=== PATIENT | female | born 1975 | race Caucasian/White ===

== ENCOUNTER 2019-12-11 07:11 | Inpatient (IN) | payer OTHER ==
[~2019-12-11] VITALS: Ht 160 cm; Wt 100.5 kg
[2019-12-11] MEDS ORDERED: ONDANSETRON HCL INJ 2MG/ML 2ML 2 MG/ML VIAL IM STA (07:17)
[2019-12-11] MEDS ORDERED: SODIUM CHLORIDE 0.9% 1000ML 1,000 ML IV STA (07:20)
[2019-12-11] MEDS ORDERED: LORAZEPAM INJ 2 MG/ML VIAL IM ONE (07:30)
[2019-12-11] MEDS ORDERED: LORAZEPAM INJ 2 MG/ML VIAL ONE ×2 (07:30→07:41)
[2019-12-11] MEDS ORDERED: ONDANSETRON HCL INJ 2MG/ML 2ML 2 MG/ML VIAL ONE (07:31)
[2019-12-11] MEDS ORDERED: ONDANSETRON HCL INJ 2MG/ML 2ML 2 MG/ML VIAL IV STA (07:41)
[2019-12-11] MEDS ORDERED: LORAZEPAM INJ 2 MG/ML VIAL IV ONE ×3 (07:45→10:15)
[2019-12-11] MEDS ORDERED: ZIPRASIDONE 20 MG VIAL IM ONE (08:40)
[2019-12-11] MEDS ORDERED: ZIPRASIDONE 20 MG VIAL IM STA (08:42)
--- NOTE | 2019-12-11 08:42 | Diagnostic Imaging Report ---
Examination: CT head without contrast Clinical Indication: N ^ams ^[id number] ^[id number]; Altered mental status.. Technique: Transaxial noncontrast images from the skull base through the vertex were obtained. Sagittal and coronal reformatted images were done. Dose modulation, iterative reconstruction, and/or weight based adjustment of the mA/kV was utilized to reduce the radiation dose to as low as reasonably achievable. Comparison: None. Findings: There is significant motion artifact on the scan. Scalp: No abnormalities. Bones: Intact. No fractures. No blastic or lytic lesions. Brain sulci: Appropriate for patient's age. Ventricles: Normal in size and configuration. No hydrocephalus. Extra-axial space: No large hemorrhage. Left frontal 1.7 x 3.7 x 2.6cm arachnoid cyst. Parenchyma: Chronic left internal capsule (posterior limb) lacunar infarct. No large masses, large hemorrhage, or large acute or chronic cortical based vascular insults. Suprasellar region: No abnormalities. Craniocervical junction: The foramen magnum is patent. No Chiari one malformation. Impression: Despite limitation, no large intraparenchymal or extra-axial hemorrhage or large acute territorial infarct. Chronic left internal capsule lacunar infarct. Left frontal 1.7 x 3.7 x 2.6cm arachnoid cyst. Signed by: Dr. Lou Phillips M.D. on 12/11/2019 8:39 AM
[2019-12-11 09:37] LABS: INR 1.03
[2019-12-11 09:38] LABS: PARTIAL THROMBOPLASTIN TIME 26.6 seconds (23.8-35.5)
[2019-12-11 09:39] LABS: CLARITY,URINE CLEAR (CLEAR); COLOR,URINE AMBER (YELLOW)
[2019-12-11 09:40] LABS: BILIRUBIN,URINE SMALL (NEGATIVE); KETONES,URINE TRACE (NEGATIVE); LEUKOCYTE ESTERASE ,URINE NEGATIVE (NEGATIVE); NITRITE,URINE NEGATIVE (NEGATIVE); PROTEIN,URINE DIPSTICK 1+ (NEGATIVE); URINE UROBILINOGEN 0.2 mg/dL (0.2 - 1)
[2019-12-11 09:41] LABS: AMPHETAMINES SCREEN,URINE NEGATIVE (NEGATIVE); BENZODIAZEPINES SCREEN,URINE NEGATIVE (NEGATIVE); PHENCYCLIDINE SCREEN,URINE NEGATIVE (NEGATIVE)
[2019-12-11 09:52] LABS: BACTERIA,URINE MANY /HPF; EPITHELIAL CELLS,URINE MODERATE /LPF; MUCUS,URINE MANY (RARE); RBC,URINE 0-5 /HPF (0-5); WBC,URINE (MAN) 0-5 /HPF (0-5)
[2019-12-11 10:03] LABS: SALICYLATE < 5.0 mg/dL (0-30)
[2019-12-11] MEDS ORDERED: HYDROMORPHONE 1MG/1ML INJ IV STA (10:14)
[2019-12-11] MEDS ORDERED: DIPHENHYDRAMINE HCL INJ 50 MG/ML VIAL IV ONE (10:15)
[2019-12-11 10:18] LABS: ALANINE AMINOTRANSFERASE 23 IU/L (0-55); ALBUMIN 3.6 g/dL (3.5-5.0); ALBUMIN/GLOBULIN RATIO 0.7 (0.8-2.0); ALKALINE PHOSPHATASE 60 IU/L (40-150); BLOOD UREA NITROGEN 9 mg/dL (7-26); BUN/CREATININE RATIO 9 (6-25); CARBON DIOXIDE 25 mmol/L (22-29); CHLORIDE 103 mmol/L (98-107); CREATINE KINASE 62 IU/L (29-168); EST GLOMERULAR FILTRATION RATE > 60 ML/MIN (60-); GLUCOSE 95 mg/dL (74-118); SODIUM 138 mmol/L (136-145)
--- NOTE | 2019-12-11 10:23 | NUR ---
requested 1:1 sitter from greenhouse manager
[2019-12-11 10:39] LABS: THYROID STIMULATING HORMONE 3.406 uIU/mL (0.350-4.940)
--- NOTE | 2019-12-11 11:04 | NUR ---
LAB NOTIFIED, THEY WILL COME BACK TO REDRAW CBC
--- NOTE | 2019-12-11 11:25 | NUR ---
LIBRARY HELPER AT BEDSIDE OBTAINING BLOOD WORK
[2019-12-11 11:34] LABS: BASOPHILS % 0.4 % (0.0-1.0); EOSINOPHILS % 0.4 % (0.0-6.0); HEMATOCRIT 38.4 % (34.2-44.1); HEMOGLOBIN 12.3 g/dL (12.0-16.0); LYMPHOCYTES # (AUTO) 0.8 (1.0-3.2); LYMPHOCYTES % 29.4 % (18.0-39.1); MEAN CORPUSCULAR HEMOGLOBIN 29.8 pg (28-32); MONOCYTES # (AUTO) 0.2 (0.2-0.8); MONOCYTES % 7.8 % (4.4-11.3); NEUTROPHILS # (AUTO) 1.7 (2.1-6.9); NEUTROPHILS % 61.6 % (38.7-80.0); PLATELET COUNT 148 x10e3/uL (140-360); RED BLOOD COUNT 4.13 x10e6/uL (3.6-5.1); RED CELL DISTRIBUTION WIDTH 13.1 % (11.7-14.4)
--- NOTE | 2019-12-11 11:39 | Emergency Department Note ---
History of Present Illnes History of Present Illness Chief Complaint: Neurological History of Present Illness This is a 44 year old female pt brought in via [facility] at 0715 from local [facility], as per EMS, pt was found sitting in the aisle by her coworkers and appeared to be confused and dazed, pt c/o pain all over, abdominal pain and head pain to the back of the head, pt appears to be distraught, bruising and swelling noted to the lower and upper extremities that appears to be of old age, history cannot be obtained due to patient's current condition, pt able to answer questions regarding her name and location but cannot describe what is really going on, pt was taken to CT on EMS arrival. Best friend showed up and says pt has been hurting all over for weeks, says pt went to her PCP recently and meds were changed (she does not know what meds or what ailment was being treated), seemed confused at work today and was riding around in wheelchair, then found laying on floor Historian: Patient Arrival Mode: [facility] History limited by: condition of the patient Boss Miner Required: No Onset (how long ago): hour(s) Radiation: Reports non-radiation Severity: moderate Onset quality: gradual Timing of current episode: constant Progression: worsening Chronicity: new Context: Denies recent illness Associated symptoms: Reports confusion Past Medical/Family History Physician Review I have reviewed the patient's past medical and family history. Any updates have been documented here. Past Medical History Recent Fever: No Clinical Suspicion of Infectio: No New/Unexplained Change in Ment: Yes Past Medical History: None Other Medical History: unable to obtain due to patient's current condition Past Surgical History: None Social History Smoking Cessation: Unknown if ever smoked Alcohol Use: None Any Illegal Drug Use: No Family History Family history of heart diseas: No Other Any Pre-Existing Lines (PICC,: No Review of Systems ROS Narrative Unable to obtain ROS: Unable to obtain due to, altered mental status Physical Exam Related Data Allergies: Coded Allergies: No Known Allergies (Unverified , 12/11/19) Triage Vital Signs Vital Signs Date Time Temp Pulse Resp B/P (MAP) Pulse Ox O2 Delivery O2 Flow Rate FiO2 12/11/19 07:15 78 24 100 12/11/19 11:14 97.8 Room Air Vital signs reviewed: Yes Physical Exam CONSTITUTIONAL Constitutional: Present obese HENT HENT: Present normocephalic, Present atraumatic, Present oropharynx clear/moist, Present nose normal HENT L/R: Present left ext ear normal, Present right ext ear normal EYES Eyes: Reports PERRL, Reports conjunctivae normal NECK Neck: Present ROM normal PULMONARY Pulmonary: Present effort normal, Present breath sounds normal CARDIOVASCULAR Cardiovascular: Present regular rhythm, Present heart sounds normal, Present capillary refill normal, Present normal rate GASTROINTESTINAL Abdominal: Present soft, Present bowel sounds normal, Present tender (mild TTP RUQ without R/G/Mcdaniel's) GENITOURINARY Genitourinary: Present exam deferred SKIN Skin: Present warm, Present dry, Present bruising (multiple areas of bruising on bilateral LE's in various stages of healing) MUSCULOSKELETAL Musculoskeletal: Present ROM normal, Present edema (non-pitting edema bilat LE's) NEUROLOGICAL Neurological: Present alert, Present other (oriented to name and place not time, very agitated and uncooperative at times) PSYCHOLOGICAL Psychological: Present other (depressed affect, abnormal behavior, anxious) Results Laboratory Result Diagram: 12/11/19 0911 Laboratory Laboratory Tests Test 12/11/19 09:11 12/11/19 08:36 Prothrombin Time 14.0 seconds (11.9-14.5) Prothromb Time International Ratio 1.03 Activated Partial Thromboplast Time 26.6 seconds (23.8-35.5) Sodium Level 138 mmol/L (136-145) Potassium Level 3.0 mmol/L (3.5-5.1) Chloride Level 103 mmol/L (98-107) Carbon Dioxide Level 25 mmol/L (22-29) Anion Gap 13.0 mmol/L (8-16) Blood Urea Nitrogen 9 mg/dL (7-26) Creatinine 1.00 mg/dL (0.57-1.11) Estimat Glomerular Filtration Rate > 60 ML/MIN (60-) BUN/Creatinine Ratio 9 (6-25) Glucose Level 95 mg/dL (74-118) Lactic Acid Level 1.0 mmol/L (0.5-2.0) Calcium Level 9.0 mg/dL (8.4-10.2) Total Bilirubin 0.4 mg/dL (0.2-1.2) Aspartate Amino Transf (AST/SGOT) 25 IU/L (5-34) Alanine Aminotransferase (ALT/SGPT) 23 IU/L (0-55) Alkaline Phosphatase 60 IU/L (40-150) Ammonia 77 UG/DL (31-123) Creatine Kinase 62 IU/L (29-168) Creatine Kinase MB 1.40 ng/mL (0-5.0) Troponin I 0.009 ng/mL (0-0.300) Total Protein 8.7 g/dL (6.5-8.1) Albumin 3.6 g/dL (3.5-5.0) Globulin 5.1 g/dL (2.3-3.5) Albumin/Globulin Ratio 0.7 (0.8-2.0) Thyroid Stimulating Hormone (TSH) 3.406 uIU/mL (0.350-4.940) Human Chorionic Gonadotropin, Qual Negative (NEGATIVE) Salicylates Level < 5.0 mg/dL (0-30) Acetaminophen Level < 3.0 ug/mL (10-30) Ethyl Alcohol Level < 10.0 mg/dL (0.0-10.0) Urine Color Janet (YELLOW) Urine Clarity Clear (CLEAR) Urine pH 5 (5 - 7) Urine Specific [place] 1.025 (1.010-1.025) Urine Protein 1+ (NEGATIVE) Urine Glucose (UA) Negative (NEGATIVE) Urine Ketones Trace (NEGATIVE) Urine Blood Negative (NEGATIVE) Urine Nitrite Negative (NEGATIVE) Urine Bilirubin Small (NEGATIVE) Urine Urobilinogen 0.2 mg/dL (0.2 - 1) Urine Leukocyte Esterase Negative (NEGATIVE) Urine RBC 0-5 /HPF (0-5) Urine WBC 0-5 /HPF (0-5) Urine Epithelial Cells Moderate /LPF (NONE) Urine Bacteria Many /HPF (NONE) Urine Hyaline Casts 2-5 (0-1) Urine Mucus Many (RARE) Urine Opiates Screen Negative (NEGATIVE) Urine Methadone Screen Negative (NEGATIVE) Urine Barbiturates Screen Negative (NEGATIVE) Urine Phencyclidine Screen Negative (NEGATIVE) Urine Amphetamines Screen Negative (NEGATIVE) Urine Methamphetamines Screen Negative (NEGATIVE) Urine Benzodiazepines Screen Negative (NEGATIVE) Urine Cocaine Screen Negative (NEGATIVE) Urine Cannabinoids Screen Negative (NEGATIVE) Lab results reviewed: Yes Imaging Imaging results reviewed: Yes Impressions Examination: CT head without contrast Clinical Indication: N ^ams ^[id number] ^[id number]; Altered mental status.. Technique: Transaxial noncontrast images from the skull base through the vertex were obtained. Sagittal and coronal reformatted images were done. Dose modulation, iterative reconstruction, and/or weight based adjustment of the mA/kV was utilized to reduce the radiation dose to as low as reasonably achievable. Comparison: None. Findings: There is significant motion artifact on the scan. Scalp: No abnormalities. Bones: Intact. No fractures. No blastic or lytic lesions. Brain sulci: Appropriate for patient's age. Ventricles: Normal in size and configuration. No hydrocephalus. Extra-axial space: No large hemorrhage. Left frontal 1.7 x 3.7 x 2.6cm arachnoid cyst. Parenchyma: Chronic left internal capsule (posterior limb) lacunar infarct. No large masses, large hemorrhage, or large acute or chronic cortical based vascular insults. Suprasellar region: No abnormalities. Craniocervical junction: The foramen magnum is patent. No Chiari one malformation. Impression: Despite limitation, no large intraparenchymal or extra-axial hemorrhage or large acute territorial infarct. Chronic left internal capsule lacunar infarct. Left frontal 1.7 x 3.7 x 2.6cm arachnoid cyst. Signed by: Dr. Lou Phillips M.D. on 12/11/2019 8:39 AM Procedures 12 Lead ECG Interpretation ECG Interpretation : ECG: ECG 1 Boss Miner: Interpreted by ED physician Date: Dec 11, 2019 Time: 08:09 Rhythm: sinus tachycardia Rate: tachycardia BPM: 103 QRS axis: normal ST segments normal: Yes T waves normal: Yes Clinical Impression: normal ECG (except sinus tachycardia) Assessment & Plan Medical Decision Making MDM AMS - check cbc, poly, ecg, cardiacs, pt/ptt, tsh, ua/cx, bl cx's, preg, lactic, NH3, UDS, EtOH, Tyl/Salicylate levels, CT Brain/C-spine (although no evid of trauma it is unknown if pt fell, found laying on floor) - r/o cerebral bleed, encephalopathy, STEMI/NSTEMI, CVA, drug ingestion, EtOH intox, electrolyte abnl, renal insuff Reassessment Reassessment I GAVE MULTIPLE MEDS TO FACILITATE CARE. PT FINALLY RESTING COMFORTABLY Admit to Dr Hare on-call Assessment & Plan Final Impression: (1) Altered mental status Depart Disposition: ADMITTED Last Vital Signs Date Time Temp Pulse Resp B/P (MAP) Pulse Ox O2 Delivery O2 Flow Rate FiO2 12/11/19 11:14 97.8 89 18 164/107 99 Room Air Medications in the ED Ondansetron HCl 4 mg NOW STAT IM Last administered on 12/11/19at 07:30; Admin Dose 4 MG; Start 12/11/19 at 07:17; Stop 12/11/19 at 07:43; Status DC Lorazepam 1 mg ONCE ONCE IM Last administered on 12/11/19at 07:30; Admin Dose 1 MG; Start 12/11/19 at 07:30; Stop 12/11/19 at 07:43; Status DC Sodium Chloride 1,000 ml @ 0 mls/hr Q0M STAT IV Last administered on 12/11/19at 08:56; Admin Dose 1,000 MLS/HR; Start 12/11/19 at 07:20; Stop 12/11/19 at 07:23; Status DC Lorazepam 1 mg ONCE ONCE IV Last administered on 12/11/19at 08:06; Admin Dose 1 MG; Start 12/11/19 at 07:45; Stop 12/11/19 at 08:16; Status DC Lorazepam 1 mg ONCE ONCE IV Last administered on 12/11/19at 11:00; Admin Dose 1 MG; Start 12/11/19 at 07:45; Stop 12/11/19 at 08:17; Status DC Ondansetron HCl 4 mg NOW STAT IV ; Start 12/11/19 at 07:41; Stop 12/11/19 at 08:16; Status DC Ondansetron HCl 4 mg STK-MED ONCE .ROUTE ; Start 12/11/19 at 07:31; Stop 12/11/19 at 07:43; Status DC Lorazepam 2 mg STK-MED ONCE .ROUTE ; Start 12/11/19 at 07:30; Stop 12/11/19 at 07:43; Status DC Lorazepam 2 mg STK-MED ONCE .ROUTE ; Start 12/11/19 at 07:41; Stop 12/11/19 at 07:43; Status DC Ziprasidone 20 mg STK-MED ONCE IM ; Start 12/11/19 at 08:40; Stop 12/11/19 at 08:34; Status DC Ziprasidone 20 mg NOW STAT IM Last administered on 12/11/19at 08:45; Admin Dose 20 MG; Start 12/11/19 at 08:42; Stop 12/11/19 at 08:46; Status DC Lorazepam 1 mg ONCE ONCE IV ; Start 12/11/19 at 10:15; Stop 12/11/19 at 10:16; Status DC Hydromorphone HCl 1 mg NOW STAT IV Last administered on 12/11/19at 11:00; Admin Dose 1 MG; Start 12/11/19 at 10:14; Stop 12/11/19 at 10:16; Status DC Diphenhydramine HCl 50 mg NOW ONCE IV Last administered on 12/11/19at 11:13; A dmin Dose 50 MG; Start 12/11/19 at 10:15; Stop 12/11/19 at 10:16; Status DC MARTÍNEZ CLEMENTE MD Dec 11, 2019 11:38
[2019-12-11] MEDS ORDERED: KCL 20MEQ/.9 SOD CHL 1,000 ML IV ONE (12:00)
[2019-12-11 13:44] VITALS: BP 189/153
[2019-12-11] MEDS: LORAZEPAM INJ 2 MG/ML VIAL IV PRN ×2 (14:04→21:39)
--- NOTE | 2019-12-11 14:17 | NUR ---
patient received from ER via stretcher. see admit assess. unable to find any immediate family, called [facility] [employer] where patient works and there was no emergency contact on file. spoke with 2 friends of hers that only know that her family moved to [place]. patient unable to provide any information other than her first name. 1:1 sitter at bedside. all admit information from observation and assessment only. BP elevated, will notify Dr Hare. ativan 1mg given for agitation.
[2019-12-11] MEDS ORDERED: POTASSIUM CHLORIDE 20MEQ/100ML 200 ML IV ONE (16:00)
[2019-12-11] MEDS ORDERED: ACETAMINOPHEN 325 MG TAB PO PRN (16:00)
--- NOTE | 2019-12-11 16:57 | NUR ---
Dr Hare wants anesthesia to keep patient sedated during MRI. facepiece line supervisor notified.
[2019-12-11] MEDS ORDERED: VANCOMYCIN 1GM/NS 250 ML 250 ML IV SCH (17:00)
[2019-12-11] MEDS ORDERED: ACETAZOLAMIDE SODIUM 500 MG/VIAL IV ONE (17:00)
--- NOTE | 2019-12-11 17:27 | Progress Note ---
DATE: Quick Progress Note I reviewed the case with the neurologist, Dr. Orellana in which he reviewed the imaging studies in relation to this patient. The patient does have a pretty large subarachnoid cyst. I will go ahead and get the MRI of the brain with and without contrast stat under anesthesia. I spoke with Neurology and he states that these are usually benign areas that will eventually need to be drained at a later date. I did make sure that the nursing staff called Dr. Hughes, Neurosurgery to evaluate. She will be on anti-seizure medications, also on IV Diamox per Neurology. I talked with Neurology to see if the patient needs to be in IMCU or ICU. He stated that she is stable and she could be okay where she is at. I did treat here with IV antibiotics in the event if this is an infectious etiology. I also consulted with ID. I discussed the plan of care with nursing staff as well. She will be on cardiac telemetry. We will monitor her very closely. I will call later tonight and get an update from the nursing staff. MRI of the brain is with anesthesia. Hopefully, we get the results and we will discuss this case with the consultants as well. I also spoke with the nursing staff to give me further update. MD HINA Stephens/RENALDO /[id number]
--- NOTE | 2019-12-11 17:52 | History and Physical ---
ADDENDUM: I when added Rocephin and vancomycin meningitic doses despite the likelihood of infection may be low, but I will go ahead and treat her in the event there is some evidence of meningitis. If the patient continues to be very combative, I will go ahead and get an LP. I did go ahead and put a consult for Infectious Disease as well to see if this is some other form of encephalitis. We will get morning labs including CRP and sedimentation rate, which I will go ahead and order now to see if there is any evidence of any active infection. We will await recommendations by all consultants. MD HINA Stephens/RENALDO /[id number]
[2019-12-11] MEDS: SODIUM CHLORIDE 0.9% 1000ML 1,000 ML IV SCH (18:19)
[2019-12-11] MEDS ORDERED: CEFTRIAXONE SOD 2 GM/NS 100 ML 100 ML IV SCH (18:30)
--- NOTE | 2019-12-11 19:27 | History and Physical ---
CHIEF COMPLAINT: Altered mental status. HISTORY OF PRESENT ILLNESS: This patient's information is being obtained from the nursing staff in ED note. The patient is currently very confused, altered, requiring antipsychotics for her to calmed down. A 44-year-old female, who works at a local [employer]. Apparently, has been having migraine headaches according to our reports for the last several weeks, presented today from [employer] after found to have some altered mental status at the job site. Apparently, she was using the handicap wheelchair, the electronic one and was cruising in the aisles of the [employer]. Working staff was very concerned and called 911, and she was brought into the [facility]. While here, the patient was very combative, confused and agitated. We were unable to obtain any information from her. Current information being obtained is from investigation and calling several friends and work staff members. She received some Geodon, lorazepam, Benadryl including Dilaudid in the emergency room. I came to evaluate the patient. She is currently sleeping after given Geodon from the Emergency Department. REVIEW OF SYSTEMS: Pertinent positives. The only thing I am able to obtain is migraine headaches. She is currently confused and altered. Unable to obtain any other information from the patient. ALLERGIES: WE DO NOT KNOW HER ALLERGY HISTORY. MEDICATIONS: Unable to obtain. PAST MEDICAL HISTORY: Unable to obtain. SURGICAL HISTORY: Unable to obtain. FAMILY HISTORY: Unable to obtain. SOCIAL HISTORY: Unable to obtain except we know she works at the local [employer]. PHYSICAL EXAMINATION: VITAL SIGNS: Temperature is 97.8, pulse 89, respiratory rate is 18, blood pressure 164/107, pulse ox 99% on room air. GENERAL: She is currently sleeping, sedated. PULMONARY: She is clear to auscultation bilaterally. No wheezing, no rales, no rhonchi appreciated. CARDIOVASCULAR: Positive S1, S2. No murmurs, rubs, or gallops appreciated. ABDOMEN: Soft, nondistended, and nontender to palpation. Bowel sounds present. MUSCULOSKELETAL: Unable to obtain. She is currently sedated. NEUROLOGIC: Unable to obtain currently sedated. PSYCHIATRIC: Currently sedated. LABORATORY FINDINGS: Show white count 2.6, hemoglobin 12, hematocrit 38, and platelets of 148. Coagulation; PT 14, INR 1.03, PTT 26. Chemistry; sodium 138, potassium 3, chloride 103, bicarb 25, anion gap of 13, BUN is 9, creatinine is 1, glucose is 95. Lactic acid is 1, calcium is 9. Total bilirubin 0.4, AST 25, ALT 23. Ammonia level was 77 within normal range at this hospital. CK 62, total protein is 8.7. Troponins are negative. TSH is 3.4, prolactin is pending. HCG is negative. Urinalysis just showed some many bacteria, 2-5 hyaline casts, leukocyte esterase negative, nitrite negative. Toxicology screen; urine drug screen found to be negative. Acetaminophen negative. Salicylate negative. Ethyl alcohol was negative. Coronavirus PCR pending. Microbiology; blood and urine cultures are pending, but there are no obvious findings of infection at this time. CT brain, it was a very limited study as the patient was very agitated, but according to the report shows no large intraparenchymal or extra-axial hemorrhage or large acute tentorial infarct. There is a chronic left internal capsule lacunar infarct. There is a left frontal 1.7 x 3.7 x 2.6 cm arachnoid cyst noted on CT brain. IMPRESSION: 1. Metabolic encephalopathy, unknown etiology. 2. History of migraine headaches. PLAN: At this time, we are in the process of obtaining information from family and friends. Apparently, she has some friends and the nursing staff did speak with them. They are in the process of finding other phone numbers. According to them, the patient has been having migraine headaches for more than weeks now, but she is currently very confused and we are not able to obtain any other information. There are no reports of any fever. No recent travel that we are aware of. CT imaging of the brain does show subarachnoid cyst, which I am not sure if this is the cause of her current encephalopathy. Her white count is normal. She does not have a fever. There is no indication for antibiotics at this time. If she does develop fever, I may put her on prophylactic antibiotics. The ER spoke with Neurology already and he will come and evaluate her. I did place a consult for Neurosurgery as well as Psychiatry and Neurology. We will get a.m. labs. MRI of the brain with without contrast ordered. She may need EEG pending Neurology recommendations. She may also end up getting a lumbar puncture as well if the patient continues to be very confused. The patient's QTc is 487. We will have to be very careful with the Halima or any prolongation of QTc drugs including Haldol. She has not received any medications for me at this time. Home medications were provided in the ED prior to my evaluation. Otherwise, we will monitor very closely. Put on IV fluids n.p.o. Discussed plan of care with nursing staff. The patient refuses cardiac telemetry. We will continue to search for more family and friends to help us with this case as at this time we are unsure of her etiology. MD HINA Stephens/MODL /[id number]
--- NOTE | 2019-12-11 19:40 | NUR ---
BEDSIDE SHIFT REPORT GIVEN FROM DAY RN. PT SLEEPING. ATIVAN GIVEN PRN Q 4HRS FOR AGITATION. PT REQUIRING SITTER- PULLING OFF TELE AND CRAWLING OUT OF BED. TELE ON. RESPIRATIONS ARE EVEN AND UNLABORED. CARTER PLACED IN ER ON ADMISSION. CARTER DRAINING CLEAR YELLOW URINE. NS INFUSING VIA RT HAND 20 G AT 100ML/HR. SITE HEALTHY. PT TRYING TO PULL OUT IV - SITE WRAPPED WITH KERLIX. SITTER AT BEDSIDE. CALL LIGHT WITHIN REACH. BED LOCKED AND IN LOW POSITION.
[2019-12-11 20:00] VITALS: BP 145/93
[2019-12-11 21:00] VITALS: BP 145/93
--- NOTE | 2019-12-11 21:43 | NUR ---
ATIVAN GIVEN ORDERED - PT PULLING AT TELE AND IV. PT CONFUSED BUT MOVING ALL 4 EXTREMITIES. PT ASKED TO UNLOCK HER CELL PHONE OR GIVE US NAME OF FAMILY. PT UNABLE TO DO SO. SITTER AT BEDSIDE.
[2019-12-11 22:00] VITALS: BP 148/88
[2019-12-12] VITALS (8 sets, daily range): BP systolic 129–167; BP diastolic 70–115
[2019-12-12] MEDS: SODIUM CHLORIDE 0.9% 1000ML 1,000 ML IV SCH (02:00)
[2019-12-12] MEDS: LORAZEPAM INJ 2 MG/ML VIAL IV PRN ×4 (02:22→22:02)
--- NOTE | 2019-12-12 02:22 | NUR ---
PT AGITATED. ATIVAN GIVEN ORDERED. VANCOMYCIN GIVEN IV AT 0 12/10 AND ROCEPHIN GIVEN AT 2021 . PHARMACY NOTIFIED TO CHANGE IV TIMES. POTASSIUM IV GIVEN ORDERED POTASSIUM 3.0.
[2019-12-12] MEDS ORDERED: SODIUM CHLORIDE 0.9% 1000ML 1,000 ML IV SCH (06:00)
[2019-12-12 06:05] LABS: EOSINOPHILS % 0.8 % (0.0-6.0); HEMATOCRIT 33.2 % (34.2-44.1); HEMOGLOBIN 10.9 g/dL (12.0-16.0); LYMPHOCYTES # (AUTO) 1.1 (1.0-3.2); LYMPHOCYTES % 44.9 % (18.0-39.1); MEAN CORPUSCULAR HEMOGLOBIN 29.9 pg (28-32); MEAN CORPUSCULAR HGB CONC 32.8 g/dL (31-35); MONOCYTES # (AUTO) 0.2 (0.2-0.8); NEUTROPHILS # (AUTO) 1.1 (2.1-6.9); NEUTROPHILS % 45.3 % (38.7-80.0); PLATELET COUNT 149 x10e3/uL (140-360); RED BLOOD COUNT 3.65 x10e6/uL (3.6-5.1); RED CELL DISTRIBUTION WIDTH 13.6 % (11.7-14.4)
--- NOTE | 2019-12-12 06:10 | NUR ---
PT HITTING NURSES AND TRYING TO BITE STAFF. DR AYALA CALLED FOR STAT ORDER OF ATIVAN. ATIVAN GIVEN . pT LAY DOWN AND STOP TRYING TO GET OUT OF BED.
[2019-12-12 06:27] LABS: ALANINE AMINOTRANSFERASE 23 IU/L (0-55); ALBUMIN 3.2 g/dL (3.5-5.0); ALBUMIN/GLOBULIN RATIO 0.7 (0.8-2.0); ALKALINE PHOSPHATASE 53 IU/L (40-150); ANION GAP 8.6 mmol/L (8-16); BLOOD UREA NITROGEN 6 mg/dL (7-26); BUN/CREATININE RATIO 8 (6-25); CALCIUM 8.4 mg/dL (8.4-10.2); CARBON DIOXIDE 23 mmol/L (22-29); CHLORIDE 109 mmol/L (98-107); CREATININE, SERUM 0.76 mg/dL (0.57-1.11); EST GLOMERULAR FILTRATION RATE > 60 ML/MIN (60-); GLUCOSE 80 mg/dL (74-118); POTASSIUM 3.6 mmol/L (3.5-5.1); SODIUM 137 mmol/L (136-145)
--- NOTE | 2019-12-12 07:00 | NUR ---
RADIOLOGY PHYSICIAN HERE TO SEE PT. CALLED DR AYALA FOR CONSENT FOR MRI NO FAMILY AVAILABLE AND PT UNABLE TO SIGN. RADIOLOGY DR SIGNED CONSENT.CHACE AND ANGELIA RNS SIGNED WITNESSES FOR CONSENT AFTER VEBAL FROM DR AYALA OVER PHONE.
[2019-12-12] MEDS ORDERED: LORAZEPAM INJ 2 MG/ML VIAL IV ONE (07:30)
[2019-12-12] MEDS ORDERED: GADOBENATE DIMEGLUMINE 1 ML IV ONE (07:55)
[2019-12-12] MEDS ORDERED: CEFTRIAXONE SOD 2 GM/NS 100 ML 100 ML IV SCH (08:30)
[2019-12-12] MEDS ORDERED: VANCOMYCIN 1GM/NS 250 ML 250 ML IV SCH (09:00)
--- NOTE | 2019-12-12 09:05 | Diagnostic Imaging Report ---
History: Altered mental status Comparison studies: Head CT 12/11/2019 Technique: 3-D T1, axial DWI, axial SWI, axial T2 FLAIR and axial T2. Intravenous contrast: None Findings: Scalp: Normal in signal. No masses. Bone marrow: Normal in signal intensity. Brain sulci: Appropriate for age. Ventricles: Normal in size. No hydrocephalus. Extra axial spaces: Mildly prominent extra-axial spaces of CSF along the right anterior frontal, left posterior frontal and right anterior parietal convexities compatible with arachnoid cyst which exerts mild mass effect on the underlying brain parenchyma without eliciting parenchymal edema. No hemorrhage. Parenchyma: Acute ischemia with restricted diffusion and T2 FLAIR hyperintensity along the left thalamocapsular junction secondary to compromise of the left inferolateral vascular territory which typically arises from the left P2 ORNAMENTAL RAIL INSTALLER segment. Additional acute ischemia with restricted diffusion T2 FLAIR hyperintensity present adjacent to the tail the left hippocampus which is also in the left ORNAMENTAL RAIL INSTALLER territory. No mass or hemorrhage. Suprasellar region: No abnormalities. Craniocervical junction: Patent foramen magnum. No Chiari malformation. Vessels: Normal flow-voids in the arteries and sinuses. Incidental findings: Small right inferomedial frontal sinus retention cyst as well as mild mucosal thickening present in the bilateral maxillary sinuses and ethmoid air cells. IMPRESSION: 1. Acute nonhemorrhagic infarcts along the left thalamocapsular junction and adjacent tail of the left hippocampus in the left ORNAMENTAL RAIL INSTALLER territory. 2. Unchanged incidental arachnoid cysts. Signed by: Dr. Tomer Alvarado M.D. on 12/12/2019 9:02 AM
--- NOTE | 2019-12-12 09:09 | NUR ---
arousable, says 'leave me alone" vs 98.2 82 148 / 88 eomi to dolls pupils quickly reactive no jaundice no nuchal ridigity rrr cta right should bruise no obvious lacerations or contusion on head speech is clear when she speaks "leave me alone" moves all 4 purpusefully without tremor a/p postictal psychosis vs agidtated delirium MRI reasurring - no evidence of actue phenomena on my review. radiology report pending EEG pending continue depkaote 500 mg po oriv bid b1 100mg if eeg normal patient may require LP psych consult for psychosis. immigration case worker to find family
--- NOTE | 2019-12-12 10:20 | Consultation ---
DATE OF CONSULTATION: 12/11/2019 Neurology Consultation Ms. Torres comes to my attention after an acutely changed cognitive status. She was found on the floor at her job at [employer], after that event she has been altered, confused, and agitated. The etiology is not clear. She is not really able to give her past medical history. She at [employer], she brought here being very combative after being found down and several hours at work . She does awake enough to say leave me alone, but then she returns back to sleep. REVIEW OF SYSTEMS: Unable to elicit anything else. PAST MEDICAL HISTORY: Unable to be obtained. PAST SURGICAL HISTORY: Unable to be obtained. SOCIAL HISTORY: Unable to be obtained. FAMILY HISTORY: Unable to be obtained. PHYSICAL EXAMINATION: VITAL SIGNS: On admission, she is afebrile. Her pulse is 89 and regular. Her blood pressure was 160/107. HEENT: Her extraocular muscles were intact. Doll's eye maneuver. Pupils are reactive. There is no nuchal rigidity. Her trachea is midline. CARDIOVASCULAR: Regular rate and rhythm. ABDOMEN: Soft. NEURO: Reflexes are symmetric. Toes are mute. Not following any commands. Unable to check ataxia. She does withdraw from all four extremities symmetrically at least 4/5. ASSESSMENT AND PLAN: Severe metabolic encephalopathy post-concussive syndrome versus postictal agitation and postictal psychosis. The CT scan showed a fairly large bilateral lobulated arachnoid cyst in her head, that is chronic, not acute or subacute in appearance; it is probably not causative, may be contributory to her current symptoms. We get an MRI, an EEG, and workup for inflammatory and infectious etiologies and start her on Depakote for seizures and psychosis. AMINAH MEYER MD RR/MODL /[id number]
[2019-12-12] MEDS ORDERED: THIAMINE HCL INJ 100 MG/ML 2ML VIAL IV ONE (10:35)
[2019-12-12 11:07] LABS: HIV 1&2 AB SCREEN NON-REACTIVE (NONREACTIVE)
[2019-12-12] MEDS: VALPROATE SOD INJ SCH ×2 (11:59→22:52)
[2019-12-12] MEDS: SODIUM CHLORIDE 0.9% INJ SCH ×2 (11:59→22:52)
[2019-12-12] MEDS ORDERED: OLANZAPINE 5 MG TAB PO PRN (12:30)
[2019-12-12] MEDS ORDERED: HALOPERIDOL LACTATE 5 MG/ML VIAL IM PRN (12:30)
[2019-12-12] MEDS ORDERED: FENTANYL CITRATE/PF 100MCG/2 ML INJ ONE (13:11)
[2019-12-12] MEDS ORDERED: MIDAZOLAM HCL 2 MG/2 ML VIAL ONE (13:11)
--- NOTE | 2019-12-12 14:32 | Consultation ---
DATE OF CONSULTATION: 12/12/2019 REASON FOR CONSULTATION: Arachnoid cyst. HISTORY OF PRESENT ILLNESS: The patient is a 44-year-old woman, who was admitted yesterday with confusion and agitation, moving all extremities vigorously, but being quite combative. She had a head CT, which was interpreted by the radiologist as revealing an arachnoid cyst. The neurologist, Dr. Orellana, reviewed the head CT and ordered a stat MRI of the brain under general anesthesia last night. I reviewed the head CT and decided that the arachnoid cyst was an incidental finding without any mass effect and that her delirium and psychosis must be due to some other etiology. An MRI was performed this morning and its results are described below. I examined the patient one hour after she had received 3 mg of intravenous Ativan. She is asleep, but arousable to voice. She wants to be left alone. She tells me to leave her alone. Her speech is fluent when she does talk. She follows simple commands after I insist a great deal. Pupils are 3 mm, equal and reactive to light. Extraocular movements are intact. Face is symmetric. Motor strength is symmetric in the arms and legs. Gait was not tested. Sensory testing is not possible. I reviewed the MRI of the brain. There is an incidental CSF collection over the left frontal convexity, which more than likely represents a congenital arachnoid cyst. This is in continuity with CSF spaces over the frontal convexities bilaterally due to brain atrophy. There is no mass effect from these CSF collections on the underlying hemisphere. Importantly, there is evidence of an acute infarct in the left thalamus. IMPRESSION: Incidental asymptomatic arachnoid cyst without mass effect of no clinical consequence. The reason for the patient's psychosis and delirium is an acute left thalamic infarct. She does not require neurosurgical intervention. Management per Neurology. I will sign off. Yannick Hughes MD PP/MODL /[id number]
[2019-12-12] MEDS: DEXTROSE 5%/0.9% SOD CHL 1,000 ML IV SCH (15:43)
[2019-12-12] MEDS: ASPIRIN 300 MG SUPP PR SCH (15:50)
--- NOTE | 2019-12-12 15:57 | Progress Note ---
DATE: ADDENDUM: I spoke with the half-sister of this patient, Ms. Torres, her name is Rene. She is a nurse here in [place], [place], in which I spoke with her about her sister's findings. Apparently, she stated that she is not very close to Ms. Saldaña, in fact she only sees her approximately twice a year. She reports that she occasionally does have some behavior issues, but she does not know if she has any kind of diagnosis of any psychiatric issues. The patient does not have any spouse, no children, and is very distant from her family according to Ms. López. I did review the imaging studies, lab findings as well as other findings. I also informed her of the Neurosurgery recommendations as well as Neurology. Also informed her that there is other studies still pending including an echo, CT of the neck and head as well as other serologies. At this time, she understands the plan of care. She verbalized understanding. She would like to talk to Neurology, which will provide a phone number to the neurologist. At this time, she would like to see if she can come visit her half-sister, but I will have to talk to the hospital to see if she is allowed to do to COVID pandemic we are not allowing any family members. I will reach out to the photographic supervisor. Otherwise, I answered all her questions of Ms. López and she verbalized understanding. MD HINA Stephens/RENALDO /[id number]
--- NOTE | 2019-12-12 15:57 | Progress Note ---
DATE: 12/12/2019 SUBJECTIVE: The patient was very combative today, very confused, agitated. Requiring some medications for sedation. She did receive her MRI under anesthesia today of the brain showing an acute CVA. PHYSICAL EXAMINATION: VITAL SIGNS: Temperature 98.7, pulse 90, respiratory rate is 18, blood pressure 162/105, pulse ox 100% on room air. GENERAL: The patient is occasionally combative, so these blood pressure readings may not be accurate. She is sleeping now. She apparently was agitated earlier in the day. PULMONARY: Clear to auscultation bilaterally. No wheezing, rales, or rhonchi. No crackles appreciated. CARDIOVASCULAR: Positive S1, S2. No murmurs, rubs, or gallops. ABDOMEN: Soft, nontender, nondistended to palpation. Bowel sounds are present. MUSCULOSKELETAL: Unable to assess, currently sedated. NEUROLOGIC: Unable to assess, currently sedated. LABORATORY DATA: Labs show white count was 2.4, hemoglobin was 10.9, hematocrit 33.2, and platelets of 149. Coagulation; PT 14; INR 1.03, PTT 26. Chemistry; sodium 137, potassium 3.6, chloride 109, bicarb 23, anion gap was 8.6, BUN 6, creatinine 0.76. LFTs within normal range. Total bilirubin 0.4, albumin 3.2. TSH level was 3.4, prolactin level is pending. Troponins were negative. Urinalysis noted. Urine drug screen all negative. There is Anti-Sandee-1 and double-stranded DNA are all pending. Serology; coronavirus pending. RPR pending. HIV was nonreactive. Microbiology; blood cultures, no growth. Urine cultures, no growth. IMAGING STUDIES: MRI of the brain shows acute nonhemorrhagic infarct along the left thalamocapsular capsular junction and adjacent tail of the left hippocampus in the left [employer] territory. Unchanged incidental arachnoid cyst. IMPRESSION: 1. Acute metabolic encephalopathy secondary to acute cerebrovascular accident. 2. History of migraine headaches. 3. Agitation possibly from underlying acute cerebrovascular accident. PLAN: At this time, I reviewed the MRI of the brain findings, which shows acute CVA. I spoke with Neurosurgery, Dr. Hughes in relation to the subarachnoid cyst seen on CT brain as well as MRI of the brain and he reports that there is no neurosurgical intervention needed. Apparently, this patient likely has a congenital finding and these congenital arachnoid cysts do not require any drainage. In fact, no intervention was needed or will be needed at this time. It was felt from Neurosurgery, likely the acute CVA is leading to her underlying etiology. At this time, no further Neurosurgical intervention is needed and he signed off. As per Neurology, I spoke with them. The patient was found to have acute CVA. We then ordered a CTA of the head and neck, added aspirin suppository and oral Lipitor. A 2D echo was ordered as well. The patient is still very combative and agitated and she has p.r.n. medications for her agitation. Also consulted with Psychiatry to help with her behavioral disturbances. I discontinued the antibiotics. This is less likely to be an infectious etiology based on the current findings of the MRI. She is on antiseizure medications as per Neurology workup and further serologies have been ordered. Otherwise, we will hold anticoagulation for now in the event she needs any kind of intervention and possibly start that tomorrow. MD HINA Stephens/RENALDO /[id number]
[2019-12-12] MEDS ORDERED: IOPAMIDOL 370 MG/ML 200 ML INFUS..BTL INJ ONE (18:50)
[2019-12-12] MEDS ORDERED: SODIUM CHLORIDE 0.9% 100 ML ONE (18:50)
--- NOTE | 2019-12-12 19:14 | NUR ---
WALKING ROUNDS PERFORMED, RECEIVED PT LAYING SUPINE IN BED AAOX0, REACTIONARY TO TOUCH. NO S/SX OF DISTRESS NOTED. SITTER AT BEDSIDE. LEFT PT LAYING SUPINE IN BED, BED IN LOW LOCKED POSITION, SIDE RAILS UPX3, CALL LIGHT AND PHONE WITHIN REACH. SITTER AT BEDSIDE.
--- NOTE | 2019-12-12 20:03 | Diagnostic Imaging Report ---
EXAMINATION: CT angio of the neck and head with contrast. HISTORY:Altered mental status. COMPARISON:No direct comparison, compared with CT brain from 12/11/2019 and MRI brain from 12/12/2019. TECHNIQUE: Multidetector helical axial images were acquired through the neck and head during infusion of iodinated contrast material. Images were reviewed in multiplanar and 3-dimensional format. Dose modulation, iterative reconstruction, and/or weight based adjustment of the mA/kV was utilized to reduce the radiation dose to as low as reasonably achievable. Contrast: 100 mL of Isovue-370 . FINDINGS: Suboptimal evaluation due to motion artifact particularly in the evaluation of the intracranial vessels. NECK: If carotid bulb stenosis is present, stenosis is measured with respect to the distal extracranial internal carotid artery. Aortic arch and major vessels: Patent. Common carotid arteries: Patent Cervical carotid bifurcations: Right: Patent. Left :Patent. Internal carotid arteries: Right: Patent. Left: Patent. Vertebral arteries: Patent. Incidental finding: Nonspecific groundglass opacities in bilateral lung apices may be related to motion artifact. Multiple missing teeth, multifocal dental caries and endodontal disease. Mild mucosal thickening in right maxillary sinus. Cervical spine: Mild left foraminal stenosis at C6-C7 due to facet and uncovertebral arthrosis. Nonspecific soft tissue prominence in the lingual tonsils may represent tonsillar hyperplasia or lymphoproliferative disorder in appropriate clinical setting. HEAD: Limited nearly nondiagnostic evaluation of the intracranial vessels due to significant motion artifacts. Internal carotid arteries: Right internal carotid artery, A1 and M1 segments to the extent visualized is patent. Left internal carotid artery, A1 and M1 segments are barely visualized. Vertebral arteries: Patent. Basilar artery: Barely visualized due to motion artifacts, patent but appears diminutive. Posterior cerebral arteries: origin of left posterior cerebral artery. Patent bilateral P1 segments. Anatomical variants: Anterior communicating artery :Not visualized Posterior communicating arteries: Patent on left. Not visualized on right. Vertebral arteries: Dominant left. IMPRESSION: CTA neck: No cervical arterial abnormality. CTA head: Limited nearly nondiagnostic evaluation due to significant motion artifacts, despite the limitation right internal carotid artery, A1, M1 segments, V4 segment of vertebral arteries, basilar artery and G1sfsorzc of posterior cerebral arteries are patent. Left internal carotid artery, A1 and M1 segments cannot be adequately assessed. Signed by: Dr. Aishwarya Rubin M.D. on 12/12/2019 7:59 PM
--- NOTE | 2019-12-12 20:34 | Consultation ---
DATE OF CONSULTATION: HISTORY OF PRESENT ILLNESS: This patient who is currently noncommunicative. She is a 44-year-old white female apparently comes into the hospital with altered mental status. She works at local [employer]. She is having migraine. She comes from [facility] when she was altered. She was using handicapped wheelchair. The patient was very combative, confused, agitated. She was admitted. We do not know much about her. She had MRI of the brain, showed acute nonhemorrhagic infarct along the left thalamocapsular junction. LABORATORY DATA: Blood cultures negative. White count 2.46, hemoglobin 10. RPR pending. HIV nonreactive. Toxicology screen was negative. Sodium 137, potassium 3.6, creatinine 0.76. MEDICATIONS: She is currently on aspirin, . PHYSICAL EXAMINATION: GENERAL: She is noncommunicative. There is no fever since admission. HEENT: Negative. NECK: Supple. CHEST: Crackles. COR: S1, S2. ABDOMEN: Soft. IMPRESSION: Altered mental status. The patient has been seen by Neurology and Neurosurgery. There was no fever. Concerned about the white count being on the low side in this patient. Recheck CBC. Obtain an LP to rule out any infectious pathophysiology. We will follow from this and to call me if any abnormality of any fever. No antibiotic at present time. MD KASI Escobar/RENALDO /[id number]
[2019-12-12] MEDS ORDERED: ATORVASTATIN 20 MG TAB PO SCH (21:00)
[2019-12-12] MEDS: ATORVASTATIN 40 MG TAB PO SCH (21:00)
[2019-12-13] MEDS: LORAZEPAM INJ 2 MG/ML VIAL IV PRN ×4 (02:00→14:15)
--- NOTE | 2019-12-13 02:30 | NUR ---
IV TO (R) FA NOTED TO BE INFILTRATED. IV DISCONTINUED, CATHETER TIP INTACT. PRESSURE AND DRESSING APPLIED. NEW IV STARTED TO (L) FA. FLUSHES WITHOUT DIFFICULTY, BLOOD RETURN NOTED.
[2019-12-13] MEDS: DEXTROSE 5%/0.9% SOD CHL 1,000 ML IV SCH ×3 (06:22→23:42)
[2019-12-13 06:40] LABS: CHOL/HDL RATIO 3.8 (3.0-3.6)
[2019-12-13 06:59] LABS: THYROID STIMULATING HORMONE 1.223 uIU/mL (0.350-4.940)
--- NOTE | 2019-12-13 07:00 | NUR ---
BEDSIDE SHIFT REPORT RECEIVED PT IN STABLE CONDITION, PT CONFUSED AND COMBATIVE, PT MEDICATED PRIOR TO SHIFT CHANGE, IVF INFUSING TO L AC 20G NO SS OF INFILTRATION NOTED, CARTER TO BSD WITH YELLOW URINE NOTED, NO OTHER CO VOCIED CALL LIGHT IN REACH WILL CONTINUE TO MONITOR
--- NOTE | 2019-12-13 08:29 | NUR ---
alseep hard to awaken vs 98.7 92 163/105 is purpuseful in working against examiner by pulling away, closing eyes, gaggenhalten type phenomena eomi perrl face appears symmetric rrr cta abd soft not verbalizing today , yesterday said clearly "leave me alone" not following any commands reportedly agitated and given sedation a/p left posterior thalamic strke, size of a [place] more or less. given location hypertensive is move likely than embolic. however stroke workup shall continue patient on ASA and statin vascular imaging imperfect, it is posterior circulation vs watershed so duplx is not adequate. large arachnoid cyst - chronic - if epileptogenic etiology drainage may be needed. however not acute., EEG pending echocardiogram psych workup and initiaton of psych meds, patient has family hx of psychaitric issues, the combination of the passing of her mother, and the stroke and this admisison may point to a psychotic break or psychiatric decompensation
--- NOTE | 2019-12-13 08:35 | NUR ---
vasculitis panel repeat sed rate incrase depakote to attain therapeutic level of 50 -100 eeg pending
[2019-12-13 08:50] VITALS: BP 147/45
[2019-12-13] MEDS ORDERED: VALPROATE SOD INJ 1,000 MG in SODIUM CHLORIDE 0.9% 100 ML 100 ML INJ ONE (09:00)
[2019-12-13] MEDS: SODIUM CHLORIDE 0.9% INJ SCH (09:32)
[2019-12-13] MEDS: VALPROATE SOD INJ SCH (09:32)
[2019-12-13] MEDS: ASPIRIN 300 MG SUPP PR SCH (09:34)
[2019-12-13 09:51] VITALS: BP 147/45
--- NOTE | 2019-12-13 10:51 | NUR ---
SPOKE WITH DR. MEYER RE: DEPACON EXTRA DOSE, PT VALPORIC ACID IS 42, CHANGED ORDER TO DEPACON 500MGS BID,
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
--- NOTE | 2019-12-13 11:30 | NUR ---
IV INFILTRATED, 20G TO R AC X 1 STICK
--- NOTE | 2019-12-13 12:00 | NUR ---
BP 124/111 UNABLE TO GET MANUAL BP PT COMBATIVE AND SCREAMING,WILL TRY AGAIN IN 1 HR
--- NOTE | 2019-12-13 13:50 | NUR ---
ATTEMPTED BP RECHECK, PT SCREAMING AND COMBATIVE, WILL REATTEMPT
--- NOTE | 2019-12-13 14:33 | Progress Note ---
DATE: 12/13/2019 Psychiatric Progress Note SUBJECTIVE: The patient is evaluated and events noted. The patient is in the room. She is sedated. Sitter in the room, who reports that patient is waking up intermittently and talking to them minimally. She is getting p.r.n. IM medication for agitation. Whenever she wakes up, she gets very agitated and pulling out everything. Nursing reports that the patient has been very agitated, however, she is still n.p.o. at this time. Zyprexa IM is not available in the hospital. She does have QT prolongation, but EKG was done on the 07 of December. We will try to do another one today. Order has been placed in. ASSESSMENT: 1. Unspecified psychosis. 2. Rule out delirium. PLAN: 1. Continue with Haldol 1 mg IM q.6 hours as needed. 2. Continue Ativan 1 mg IV q.4 hours as needed. 3. Depakote as per Neurology. 4. Discussed with nursing staff. 5. Discussed with attending this morning. 6. The patient at this time does not meet criteria for inpatient psychiatry, as the patient is not able to participate in group therapy. Dictated by Saida Loo PA-C MD BRET Laguerre/RENALDO /[id number]
--- NOTE | 2019-12-13 14:39 | NUR ---
CALLED HALF SISTER AMANDA AT [phone] SHE STATES SHE IS AT WORK AND WILL TRY TO GET NUMBER AND CALL BACK FOR AUNT OLIVER OLIVAS SHE WAS CLOSE TO, CALLED AND SPOKE WITH BEST FRIEND DARRON CANTU [phone] WHOM WORKS WITH HER AT [employer], SHE IS GOING TO CALL HR (ABHI) AND SEE IF CAN GET COPY OF INSURANCE PROBABLY THROUGH [employer]. SHE WILL RETURN CALL WHEN CAN INFORMATION.
--- NOTE | 2019-12-13 15:07 | NUR ---
ALSHAY TENA NUMBER IS [phone]
--- NOTE | 2019-12-13 15:09 | NUR ---
INFECTIOUS DISEASE PROGRESS NOTE DR. JACKELIN PADILLA CC: AMS HISTORY OF PRESENT ILLNESS: This patient who is currently noncommunicative. She is a 44-year-old white female apparently comes into the hospital with altered mental status. She works at local [employer]. She is having migraine. She comes from [facility] when she was altered. She was using handicapped wheelchair. The patient was very combative, confused, agitated. She was admitted. We do not know much about her. She had MRI of the brain, showed acute nonhemorrhagic infarct along the left thalamocapsular junction. LABORATORY DATA: Blood cultures negative. White count 2.46, hemoglobin 10. RPR pending. HIV nonreactive. Toxicology screen was negative. Sodium 137, potassium 3.6, creatinine 0.76. MEDICATIONS: per chart RADIOLOGY: per chart PHYSICAL EXAMINATION: GENERAL: She is noncommunicative. There is no fever since admission. HEENT: Negative. NECK: Supple. CHEST: Crackles. COR: S1, S2. ABDOMEN: Soft. IMPRESSION: Altered mental status -unlikely to be infection related The patient has been seen by Neurology and Neurosurgery -LP was cancelled PLAN please reconsult if the pt condition changes or she develops fever Selena Lane MSN, INPUT OUTPUT CLERK, AGACNP-BC Jackelin Padilla M.D.
--- NOTE | 2019-12-13 17:00 | NUR ---
AUTOMATIC BP 125/104, ATTEMPTED TO GET MANUAL BP, PT COMBATIVE AND MOVING, WILL NOTIFY
--- NOTE | 2019-12-13 18:00 | NUR ---
IV INFILTRATED, 20G TO R HAND X 1 STICK
[2019-12-13] MEDS ORDERED: DEXTROSE 50% SYRINGE 50 ML IV PRN (18:15)
--- NOTE | 2019-12-13 18:19 | NUR ---
SPOKE WITH DR AYALA RE: BLOOD SUGAR OF 66 ORDERS GIVEN FOR D50 PRN AND INCREASE IVF TO 150CC/HR. INFORMED MD OF BP OF 125/104 PT COMBATIVE AND SCREAMING WHEN TRYING TO GET BP, NO NEW ORDERS AT THIS TIME. PPN FORM PRINTED AND PLACED ON CHART PER MD REQUEST, MD WILL FILL OUT IN AM.
--- NOTE | 2019-12-13 19:19 | NUR ---
WALKING ROUNDS PERFORMED, RECEIVED PT LAYING SEMI FOWLERS IN BED, AAOX0, RR EVEN AND NON-LABORED, ON ROOM AIR. PT WAKES TO SHAKING AND VOICE. LEFT PT LAYING SEMI FOWLERS IN BED, BED IN LOW LOCKED POSITION, SIDE RAILS UPX2, CALL LIGHT AND PHONE WITHIN REACH. SITTER AT BEDSIDE.
[2019-12-13 19:45] VITALS: BP 161/101
[2019-12-13] MEDS ORDERED: VALPROATE SOD 500 MG/5 ML ONE (20:39)
[2019-12-13] MEDS ORDERED: SODIUM CHLORIDE 0.9% 100 ML ONE (20:40)
[2019-12-13 21:00] VITALS: BP 161/101
[2019-12-13] MEDS: ATORVASTATIN 40 MG TAB PO SCH (21:00)
[2019-12-13] MEDS: VALPROATE SOD INJ 500 MG in SODIUM CHLORIDE 0.9% 100 ML 100 ML IV SCH (21:23)
[2019-12-13 23:47] VITALS: BP 161/101
--- NOTE | 2019-12-14 02:10 | Progress Note ---
DATE: 12/13/2019 Medicine Progress Note SUBJECTIVE: The patient is still very combative. She was alert and awake during my exam, but was very confused, lethargic, very combative, requiring some sedation. LABORATORY DATA: CBC stable. Chemistry reviewed, stable. Urine drug screen negative. IMMUNOLOGY: Several autoimmune studies have been ordered. Coronavirus not detected. HIV not detected. RPR is pending. Blood cultures, no growth. Urine cultures were final. CTA neck was found to be normal. CTA head has some motion artifact noted. PHYSICAL EXAMINATION: VITAL SIGNS: Afebrile. Blood pressure is 161/101, 100% on room air. GENERAL: Confused on examination. HEENT: Head normocephalic, atraumatic. Eyes; pupils are equal, round, and reactive to light bilaterally. PULMONARY: Clear to auscultation bilaterally. No wheezing, rales, or rhonchi. No crackles appreciated. CARDIOVASCULAR: Positive S1, S2. No murmurs, rubs, or gallops. GI: Abdomen is soft, nontender, nondistended to palpation. Bowel sounds are present. MUSCULOSKELETAL: Unable to assess. NEUROLOGIC: Unable to assess. IMPRESSION: 1. Acute metabolic encephalopathy, secondary to acute cerebrovascular accident. 2. History of migraine headaches. 3. Agitation, possibly secondary to acute cerebrovascular accident. PLAN: At this time, CTA head and neck noted. She is on aspirin and statin. She is still very confused, unable to eat anything. We will put her on IV PPN starting tomorrow. Add on IV fluids. Neurosurgery recommendations noted. No further workup needed. As per Neurology, several serologies have been ordered. As per ID, no antibiotics are needed. This is likely to be an infectious etiology, but we will monitor very closely. A 2D echo is pending. I discussed the plan of care with case management. They are in the process of looking further into her home situation for further assistance whenever she is ready for discharge. At this time, she is still very confused and combative in which Psychiatry is following and giving medications accordingly. MD HINA Stephens/RENALDO /[id number]
--- NOTE | 2019-12-14 03:50 | NUR ---
CALLED TO PT ROOM BY SITTER. PT HOLDING PRESSURE TO (R) HAND. WAS INFORMED BY SITTER THAT PT ROLLED TO SIDE AND THE IV WAS PULLED OUT. CLEANSED AREA IV WAS DISCONTINUED, PRESSURE AND DRESSING APPLIED. CATHETER TIP NOTED TO BE INTACT. NEW IV STARTED TO (L) FA 20G. FLUSHES WITHOUT DIFFICULTY, BLOOD RETURN NOTED.
[2019-12-14] MEDS: DEXTROSE 5%/0.9% SOD CHL 1,000 ML IV SCH ×3 (04:00→20:00)
[2019-12-14] MEDS: LORAZEPAM INJ 2 MG/ML VIAL IV PRN ×2 (04:00→09:35)
--- NOTE | 2019-12-14 04:00 | NUR ---
PT SCREAMING THAT SHE IS GETTING UP AND HAS TO GO TO THE BATHROOM. PT YELLING AT NURSE TO STOP, PT STARTING TO BECOME COMBATIVE AT THIS TIME TOWARD NURSE AND SITTER. ATIVAN ADMINISTERED.
[2019-12-14 05:08] VITALS: BP 158/89
[2019-12-14 05:11] LABS: BASOPHILS % 0.7 % (0.0-1.0); EOSINOPHILS % 0.7 % (0.0-6.0); HEMATOCRIT 31.2 % (34.2-44.1); HEMOGLOBIN 10.8 g/dL (12.0-16.0); LYMPHOCYTES # (AUTO) 0.7 (1.0-3.2); LYMPHOCYTES % 53.3 % (18.0-39.1); MEAN CORPUSCULAR HEMOGLOBIN 30.8 pg (28-32); MEAN CORPUSCULAR HGB CONC 34.6 g/dL (31-35); MEAN CORPUSCULAR VOLUME 88.9 fL (81-99); MONOCYTES # (AUTO) 0.2 (0.2-0.8); MONOCYTES % 11.1 % (4.4-11.3); NEUTROPHILS # (AUTO) 0.5 (2.1-6.9); NEUTROPHILS % 34.2 % (38.7-80.0); PLATELET COUNT 122 x10e3/uL (140-360); RED BLOOD COUNT 3.51 x10e6/uL (3.6-5.1); RED CELL DISTRIBUTION WIDTH 13.4 % (11.7-14.4)
--- NOTE | 2019-12-14 05:25 | NUR ---
NOTIFIED MD AYALA CONCERNING CRITICAL WBC LAB RESULTS. NEW ORDERS RECEIVED FOR CONSULTATION.
[2019-12-14 05:26] LABS: ANION GAP 10.3 mmol/L (8-16); BLOOD UREA NITROGEN < 5 mg/dL (7-26); CARBON DIOXIDE 21 mmol/L (22-29); CHLORIDE 111 mmol/L (98-107); EST GLOMERULAR FILTRATION RATE > 60 ML/MIN (60-); GLUCOSE 92 mg/dL (74-118); POTASSIUM 3.3 mmol/L (3.5-5.1); SODIUM 139 mmol/L (136-145)
[2019-12-14 05:28] LABS: BUN/CREATININE RATIO 8 (6-25)
--- NOTE | 2019-12-14 05:31 | NUR ---
CONSULTATION CALLED TO MD BENNETT ANSWERING SERVICE, SPOKE WITH JESSICA. WAITING FOR CALLBACK.
[2019-12-14 07:25] LABS: EOSINOPHILS % (MANUAL) 1 % (0-7); LYMPHOCYTES % (MANUAL) 52 % (19-48); MONOCYTES % (MANUAL) 6 % (3.4-9.0); NEUTROPHILS % (MANUAL) 40 % (40-74); PLATELET ESTIMATE SLIGHTLY DECREASED; PLATELET MORPHOLOGY COMMENT NORMAL; RBC MORPHOLOGY COMMENT NORMAL
[2019-12-14 08:00] VITALS: BP 157/108
[2019-12-14] MEDS: ASPIRIN 300 MG SUPP PR SCH (09:00)
[2019-12-14] MEDS: VALPROATE SOD INJ 500 MG in SODIUM CHLORIDE 0.9% 100 ML 100 ML IV SCH ×2 (09:37→20:00)
[2019-12-14 12:55] LABS: FERRITIN 45.69 ng/mL (4.63-204.00)
[2019-12-14] MEDS ORDERED: QUETIAPINE FUMARATE 25 MG TAB PO PRN (13:15)
[2019-12-14] MEDS ORDERED: HALOPERIDOL LACTATE 5 MG/ML VIAL IM PRN (13:15)
--- NOTE | 2019-12-14 14:53 | NUR ---
INTERMITTENTLY AROUSABLE 97.7 81 161/101 arousable, verbalizes in a confused manner, does not follow commands sleeping rrr cta increaesd muscle tone vs gaggnhalten reflexe abd soft no apparent ataxia a/p severe encpehalopathy- possible encephlaitis, - LP for cell counts and viral workups on depakote for possible post ictal psychosis on asa and statin for storke, will hold ASA for LP
--- NOTE | 2019-12-14 15:49 | Progress Note ---
DATE: 12/14/2019 Psychiatric Progress Note SUBJECTIVE: The patient evaluated and events noted. The patient is in the room. She is drowsy, but moving her body, to answer questions. The sitter in the room, who reports that the patient intermittently talks, makes sense about 75% of the time. The patient is currently still n.p.o. She is combative and agitated when she is awake and she continues to get p.r.n. IV Ativan. Attending note reviewed. ASSESSMENT: Unspecified psychosis/delirium. PLAN: 1. Increase Haldol from 1 mg IM to 2 mg IM q.6 hours as needed. 2. Continue Ativan p.r.n. IV. 3. Depakote as per Neurology. 4. Add Seroquel p.r.n. p.o. 5. EKG QTc is currently at 431 millisecond. Dictated by Saida Loo PA-C Katrina Parekh MD QTV/MODL /[id number]
[2019-12-14] MEDS ORDERED: LORAZEPAM INJ 2 MG/ML VIAL IV PRN (16:00)
--- NOTE | 2019-12-14 16:52 | NUR ---
infectiouse disease note patient seems a little more alert nocomplaints VS no fever HEENT not pale not icteric neck supple no jvd chest clear cor s1 s2 abdomen soft obese nt ext no edema labs noted discussed with medical team AMS /ro siezure r/o other no fever agree with LP LEUKOPNEA R/O DRUG RELATED will follow
[2019-12-14 17:00] VITALS: BP 138/98
[2019-12-14] MEDS: LORAZEPAM INJ 2 MG/ML VIAL IV SCH ×2 (17:00→23:39)
[2019-12-14] MEDS ORDERED: SODIUM CHLORIDE 0.9% 50ML 50 ML ONE (18:22)
[2019-12-14] MEDS ORDERED: IOPAMIDOL 370 MG/ML 200 ML INFUS..BTL INJ ONE (18:22)
--- NOTE | 2019-12-14 18:45 | Consultation ---
DATE OF CONSULTATION: 12/14/2019 CONSULTING PHYSICIAN: Neeraj Dutta, Hematology-Oncology Service. REASON FOR CONSULTATION: Evaluation and management of patient with severe leukopenia and anemia. HISTORY OF PRESENTING ILLNESS: Ms. Torres is a 44-year-old female with history of migraine and wheelchair-bound, presented to the emergency department due to altered mental status. Apparently, the patient was found to be confused, agitated, and combative at [employer] where she works. In the emergency department, she underwent workup revealing anemia with hemoglobin of 10.9 and white blood cell count of 2.4. Due to agitation, she was given Geodon and admitted to inpatient floor. She was seen and followed by Neurology and felt to have a severe metabolic encephalopathy. She also underwent workup including CT scan revealing large bilateral lobulated arachnoid cyst, chronic in nature without any acute event. She was also seen and evaluated by Infectious Disease and presently undergoing workup and meanwhile started on antibiotics. Psych consultation was also obtained and the patient was treated with Haldol and Ativan. This morning, laboratory workup revealed further decline in white blood cell count. Subsequently, Hematology-Oncology has been consulted to assist with the management. Presently, the patient is lying comfortably, however, sedated, not able to communicate and provide any history. Most of the history is obtained from the record. Sitter is at bedside. PAST MEDICAL HISTORY: 1. Migraine headache. 2. History of wheelchair-bound status. 3. History of migraine. PAST SURGICAL HISTORY: None. SOCIAL HISTORY: Unknown other than she works at [employer]. REVIEW OF SYSTEMS: Unobtainable. PHYSICAL EXAMINATION: VITAL SIGNS: Reviewed as per electronic medical record. HEENT: Head is atraumatic and normocephalic. NECK: Supple. CV: S1 and S2 audible. RESPIRATORY: Decreased bilateral air entry. ABDOMEN: Positive bowel sounds. EXTREMITIES: Positive edema. NEURO: The patient is sedated. LABORATORY DATA: White blood cell count of 1.3, hemoglobin 10.8, hematocrit 31.2, and platelets 122. ASSESSMENT AND PLAN: Ms. Torres is a 44-year-old young female with no significant past medical history other than migraine, who was at work and became confused, agitated and combative, subsequently brought into the emergency department. Initial workup including CT scan of the brain showed chronic left internal capsule lacunar infarct and left frontal arachnoid cyst without any acute pathology. 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 The patient was seen and evaluated by Neurology, underwent CTA neck. This morning, noted to have significant drop in white blood cell count. Subsequently, Hematology-Oncology has been consulted to assist with the management. I have reviewed the record and discussed the plan at the bedside with the nurse as well as the Neurology team about the current disease status. Cause of leukopenia is uncertain, however, in this young lady either bone marrow process or autoimmune process cannot be ruled out completely. Recommendation would be to get peripheral smear review to evaluate for any abnormal bone marrow cells and if there is no blast, growth factor can be considered to raise the counts, so the patient can have further workup for altered mental status. Neurology is considering to have a lumbar puncture. The patient also has anemia, this very well could be iron deficiency anemia. Baseline workup has been requested. Mostly, supportive care for now. Thank you for the consult. I will continue to be available. Please call with questions. Neeraj Dutta MD IJ/MODL /[id number]
--- NOTE | 2019-12-14 18:51 | Diagnostic Imaging Report ---
EXAM: CT Abdomen and Pelvis WITH contrast INDICATION: Abdominal pain concerning for infection versus malignancy. COMPARISON: None. TECHNIQUE: Abdomen and pelvis were scanned utilizing a multidetector helical scanner from the lung base to the pubic symphysis after administration of IV contrast. Coronal and sagittal reformations were obtained. Routine protocol was performed. Scan was performed when during portal venous phase. IV CONTRAST: 100 mL of Isovue 370 ORAL CONTRAST: None COMPLICATIONS: None RADIATION DOSE: Total DLP: 1157 mGy*cm Estimated effective dose: (DLP x 0.015 x size factor) mSv CTDIvol has been reviewed. It is below the limits set by the Radiation Protocol Committee (RPC). Dose modulation, iterative reconstruction, and/or weight based adjustment of the mA/kV was utilized to reduce the radiation dose to as low as reasonably achievable. FINDINGS: LINES and TUBES: [place]ar[place] catheter in place. LOWER THORAX: There is bibasilar atelectasis. HEPATOBILIARY: No focal hepatic lesions. No biliary ductal dilation. GALLBLADDER: No radio-opaque stones or sludge. No wall thickening. SPLEEN: The spleen is enlarged, measuring approximately 15 cm in maximal craniocaudal dimension. No focal splenic lesion identified. PANCREAS: No focal masses or ductal dilatation. ADRENALS: No adrenal nodules KIDNEYS/URETERS: Kidneys enhance symmetrically. No hydronephrosis. No cystic or solid mass lesions. No stones. GI TRACT: The stomach is underdistended and not well assessed. No abnormal distention, wall thickening, or evidence of bowel obstruction. Appendix is normal. PELVIC ORGANS/BLADDER: The partially decompressed urinary bladder has a normal wall contour with a Camar[place] catheter in place. LYMPH NODES: There are multiple prominent para-aortic lymph nodes, none of which meet criteria for pathologic enlargement. VESSELS: Unremarkable. PERITONEUM / RETROPERITONEUM: No free air or fluid. BONES: There are mild degenerative changes in the spine. SOFT TISSUES: Unremarkable. IMPRESSION: 1. No acute abdominopelvic abnormality identified. No abdominopelvic mass or evidence of infection. 2. Splenomegaly of indeterminate cause. 3. Prominent para-aortic lymph nodes, none of which meet size criteria for pathologic enlargement and most likely represent reactive lymph nodes. Signed by: Nayan Quach MD on 12/14/2019 6:48 PM
[2019-12-14 19:26] VITALS: BP 157/96
[2019-12-14 20:00] VITALS: BP 157/96
[2019-12-14] MEDS: ATORVASTATIN 40 MG TAB PO SCH (20:47)
[2019-12-14 23:49] VITALS: BP 126/92
[2019-12-15] MEDS: DEXTROSE 5%/0.9% SOD CHL 1,000 ML IV SCH ×3 (03:01→17:24)
--- NOTE | 2019-12-15 03:15 | NUR ---
DAILY CARTER CARE PROVIDED.
--- NOTE | 2019-12-15 03:34 | Progress Note ---
DATE: 12/14/2019 Medicine Progress Note SUBJECTIVE: The patient is still very combative and confused on examination. IV PPN initiated. Discussed case with consultants during the process of doing an LP under etiology of altered mental status. OBJECTIVE: VITAL SIGNS: Afebrile, normotensive. Respiratory rate is good. LABORATORY DATA: Showed a white count 11.35, hemoglobin , hematocrit 31, platelets of 122. count 4.14% stable. Chemistries, potassium is 3.3 replaced, shows evidence of iron deficiency anemia GENERAL: The patient is very confused and combative. PULMONARY: Clear to auscultation bilaterally. No wheezing, rales, or rhonchi. CARDIOVASCULAR: Positive S1, S2. No murmurs, rubs, or gallops appreciated. GI: Abdomen is soft, nontender, nondistended to palpation. Bowel sounds are present. MUSCULOSKELETAL: Unable to assess. NEUROLOGIC: Unable to assess. IMPRESSION: 1. Acute metabolic encephalopathy concerning for acute CVA . 2. History of migration headaches. 3. Agitation, possibly secondary to acute CVA. PLAN: At this time, CTA head and neck results . Continue with aspirin and statin. The patient appears to have combative, several consultants involved. . Stop IV fluids. The patient will need an LP and which ID and Neurology had discuss this with her on Thursday of this week. MD HINA Stephens/MODWally /[id number]
[2019-12-15] MEDS: LORAZEPAM INJ 2 MG/ML VIAL IV SCH ×4 (05:40→23:48)
[2019-12-15 05:42] VITALS: BP 144/94
--- NOTE | 2019-12-15 07:00 | NUR ---
RECEIVED PATIENT RESTING IN BED NO S/S OF DISTRESS. BED LOW, WHEELS LOCKED, SIDE RAILS X2. CALL LIGHT IN REACH WILL CONTINUE TO MONITOR PATIENT.
--- NOTE | 2019-12-15 07:00 | NUR ---
REPORT GIVEN TO DAYSMAFT NURSE. NO ADVERSE SIGNS OR SYMPTOMS AT THIS TIME. NO SIGNS OF IV INFILTRATION. D5NS INFUSING AT 150ML/HR. SITTER AT BEDSIDE. BED LOCKED AND IN LOW POSITION. SR UP. CALL LIGHT WITHIN REACH. BED ALARM ACTIVATED.
--- NOTE | 2019-12-15 08:09 | NUR ---
RECEIVED NOTE THAT STATES AUNT OLIVER GARCIA RAISED HER FROM A BABY, .
--- NOTE | 2019-12-15 08:12 | NUR ---
calmer today, verbalizing coherently. follows commands amenstic to her arrival and prior days before arrival to hospital does not recognize me from previous visits 97.8 157/98 64 awake, follows some comamnds, responds to questions, slowly and pensatively eomi, possible ptosis right pupls reactive face appears symmetric no nuchal rigidity, left arm increased tone, no apparent weakness in right arm or leg no ataxia ap stroke - holding ASA today for LP tomorrow mental status changes -the arachnoid cyst and stroke do not explain the prolonged agitated confusion possible psych manifestation - psych suggests this is not the primary etiology of her symptoms elevated sed rate and wbc - LP tomorrow, id on board arachnoid cyst- chronic finding will monitor EEG - pending eval for sz, subclinical sz
[2019-12-15 08:36] VITALS: BP 144/94
[2019-12-15] MEDS: FILGRASTIM 300 MCG/ML VIAL SC SCH (08:57)
[2019-12-15] MEDS: VALPROATE SOD INJ 500 MG in SODIUM CHLORIDE 0.9% 100 ML 100 ML IV SCH ×2 (09:06→21:00)
[2019-12-15 12:22] VITALS: BP 163/104
[2019-12-15 12:24] LABS: BASOPHILS % 0.4 % (0.0-1.0); EOSINOPHILS % 1.2 % (0.0-6.0); HEMATOCRIT 33.7 % (34.2-44.1); HEMOGLOBIN 11.6 g/dL (12.0-16.0); LYMPHOCYTES # (AUTO) 0.8 (1.0-3.2); LYMPHOCYTES % 32.5 % (18.0-39.1); MEAN CORPUSCULAR HEMOGLOBIN 30.3 pg (28-32); MEAN CORPUSCULAR HGB CONC 34.4 g/dL (31-35); MONOCYTES # (AUTO) 0.1 (0.2-0.8); MONOCYTES % 5.6 % (4.4-11.3); NEUTROPHILS # (AUTO) 1.5 (2.1-6.9); NEUTROPHILS % 60.3 % (38.7-80.0); PLATELET COUNT 119 x10e3/uL (140-360); RED BLOOD COUNT 3.83 x10e6/uL (3.6-5.1); RED CELL DISTRIBUTION WIDTH 13.3 % (11.7-14.4)
[2019-12-15 12:44] LABS: ALANINE AMINOTRANSFERASE 22 IU/L (0-55); ALBUMIN/GLOBULIN RATIO 0.6 (0.8-2.0); ALKALINE PHOSPHATASE 54 IU/L (40-150); ANION GAP 11.9 mmol/L (8-16); BLOOD UREA NITROGEN < 5 mg/dL (7-26); BUN/CREATININE RATIO 8 (6-25); CALCIUM 8.2 mg/dL (8.4-10.2); CARBON DIOXIDE 23 mmol/L (22-29); CHLORIDE 109 mmol/L (98-107); CREATININE, SERUM 0.59 mg/dL (0.57-1.11); EST GLOMERULAR FILTRATION RATE > 60 ML/MIN (60-); GLUCOSE 76 mg/dL (74-118); SODIUM 141 mmol/L (136-145)
[2019-12-15 12:45] LABS: POTASSIUM 2.9 mmol/L (3.5-5.1)
[2019-12-15] MEDS ORDERED: POTASSIUM CHLORIDE 20MEQ/100ML 200 ML IV ONE (13:15)
--- NOTE | 2019-12-15 15:20 | NUR ---
CALL RECEIVED FROM JEAN CARLOS ESTRADA. [place] @ [phone]
--- NOTE | 2019-12-15 15:59 | NUR ---
REMOVED PATIENTS CARTER. CATHETER TIP INTACT ON REMOVAL. PATIENT DUE TO VOID.
--- NOTE | 2019-12-15 16:42 | Progress Note ---
DATE: 12/15/2019 Psychiatric Progress Note SUBJECTIVE: The patient evaluated and events noted. The patient is in the room. She is doing slightly better. She is more awake and verbalizing somewhat. She is not getting extra p.r.n. IV Ativan or Haldol p.r.n. IM. She is still altered. Hypersexual comment has been made by the patient as per the nurse. She is still n.p.o. She is getting medication and no serious side effects seen. ASSESSMENT: Unspecified psychosis/delirium. PLAN: 1. To continue Haldol 2 mg IM as needed. 2. Reduce Ativan IV schedule. 3. Reduce Ativan p.r.n. IV. 4. Depakote daily as per neurology. 5. Monitor for agitation. 6. Discussed with attending. Dictated by Saida Loo PA-C MD SIENNA LaguerreV/RENALDO /[id number]
--- NOTE | 2019-12-15 17:15 | NUR ---
DR. MEYER CALLED AND VOICEMAIL LEFT REGARDING INABILITY TO DO EEG DUE TO PATIENT AGITATION.
[2019-12-15] MEDS ORDERED: PERIPHERAL TPN FORMULA 1 BAG IV SCH (18:00)
--- NOTE | 2019-12-15 18:33 | NUR ---
PATIENT HAS VOIDED SINCE CARTER REMOVAL.
--- NOTE | 2019-12-15 18:38 | NUR ---
Call placed to patients aunt Edel (who has raised patient) to obtain telephone consent for lumbar puncture. Not able to reach aunt at this time. Will pass along to receiving nurse.
[2019-12-15] MEDS: ATORVASTATIN 40 MG TAB PO SCH (19:50)
--- NOTE | 2019-12-15 19:58 | NUR ---
CALLED FAMILY MEMBER FOR CONSENT. NO ANSWER.
--- NOTE | 2019-12-15 20:07 | NUR ---
SPOKE TO FAMILY. CONSENT FOR LUMBAR PUNCTURE OBTAINED VIA PHONE WITH SECOND RN.
--- NOTE | 2019-12-15 20:08 | Progress Note ---
DATE: SUBJECTIVE: Ms. Torres remains confused. OBJECTIVE: VITAL SIGNS: Stable, afebrile. HEENT: She is not icteric. NECK: Supple. CHEST: Clear. HEART: S1 and S2. ABDOMEN: Soft. Bowel sounds present. EXTREMITIES: No edema. IMPRESSION: 1. Leukopenia seems to be getting better due to drug-related. 2. Altered mental status. Neurology is following. LP is not done yet. COVID-19 is negative. HIV is negative. The patient is afebrile since admission, stable off antibiotic. Altered mental status deferred to Neurology. MD KASI Escobar/MODL /[id number]
--- NOTE | 2019-12-15 20:34 | NUR ---
CALLED PHARMACY REGARDING PPN COMPATIBILITY. INSTRUCTED TO GIVE SEPARATELY FROM IV MEDICATION WITH FLUSHES IN BETWEEN.
--- NOTE | 2019-12-15 20:42 | NUR ---
CALLED RIPRAP WORKER REGARDING PPN COMPATIBILITY. INSTRUCTED TO GIVE SEPARATELY FROM IV MEDICATION WITH FLUSHES IN BETWEEN.
[2019-12-15] MEDS ORDERED: SODIUM CHLORIDE 0.9% 250ML 250 ML ONE (20:50)
[2019-12-15 23:50] VITALS: BP 161/99
[2019-12-15 23:55] VITALS: BP 161/99
[2019-12-16] VITALS: BP 161/99
[2019-12-16] MEDS: LORAZEPAM INJ 2 MG/ML VIAL IV PRN ×3 (03:08→08:35)
--- NOTE | 2019-12-16 03:45 | NUR ---
MULTIPLE ATTEMPTS TO COLLECT MANUAL AND AUTOMATIC BLOOD PRESSURE READING. PATIENT BECOMES INCREASINGLY AGITATED AND REFUSES.
[2019-12-16 05:21] LABS: BASOPHILS % 0.1 % (0.0-1.0); EOSINOPHILS % 0.1 % (0.0-6.0); HEMATOCRIT 35.5 % (34.2-44.1); LYMPHOCYTES # (AUTO) 1.1 (1.0-3.2); LYMPHOCYTES % 15.4 % (18.0-39.1); MEAN CORPUSCULAR HEMOGLOBIN 29.8 pg (28-32); MEAN CORPUSCULAR HGB CONC 33.8 g/dL (31-35); MEAN CORPUSCULAR VOLUME 88.1 fL (81-99); MONOCYTES # (AUTO) 0.3 (0.2-0.8); MONOCYTES % 4.4 % (4.4-11.3); NEUTROPHILS # (AUTO) 5.5 (2.1-6.9); NEUTROPHILS % 79.9 % (38.7-80.0); PLATELET COUNT 126 x10e3/uL (140-360); RED BLOOD COUNT 4.03 x10e6/uL (3.6-5.1); RED CELL DISTRIBUTION WIDTH 13.3 % (11.7-14.4)
--- NOTE | 2019-12-16 05:30 | NUR ---
PATIENT FOUND WITH IV DISCONTINUED. CATHETER TIP INTACT. NO BLEEDING TO SITE. WILL NOTIFY .
[2019-12-16] MEDS: LORAZEPAM INJ 2 MG/ML VIAL IV SCH ×3 (05:38→17:53)
[2019-12-16 05:41] LABS: ANION GAP 11.4 mmol/L (8-16); BLOOD UREA NITROGEN < 5 mg/dL (7-26); CALCIUM 8.8 mg/dL (8.4-10.2); CARBON DIOXIDE 22 mmol/L (22-29); CHLORIDE 108 mmol/L (98-107); CREATININE, SERUM 0.59 mg/dL (0.57-1.11); EST GLOMERULAR FILTRATION RATE > 60 ML/MIN (60-); GLUCOSE 78 mg/dL (74-118); POTASSIUM 3.4 mmol/L (3.5-5.1); SODIUM 138 mmol/L (136-145)
[2019-12-16 05:43] LABS: BUN/CREATININE RATIO 8 (6-25)
--- NOTE | 2019-12-16 05:57 | NUR ---
NOTIFIED CHARGE NURSE NEED FOR IV ACCESS.
--- NOTE | 2019-12-16 06:30 | NUR ---
20G IV TO R HAND STARTED. CDI DRESSING PLACED. SALINE FLUSH. PERICARE PROVIDED.
--- NOTE | 2019-12-16 07:00 | NUR ---
BEDSIDE SHIFT REPORT RECEIVED FROM THE COURT INTERPRETER RN. PT IS AMS. SITTER AT BEDSIDE. BED IS LOW AND LOCKED. SIDE RAILS X2. BED ALARM IS ON. CALL LIGHT WITH IN EASY REACH.
--- NOTE | 2019-12-16 07:24 | NUR ---
REPORT GIVEN TO DAYSHIFT NURSE. RESTING IN BED. NO SIGNS IV INFILTRATION. BED LOCKED AND LOW POSITION. CALL LIGHT WITHIN REACH. BED ALARM ACTIVATED. SITTER AT BEDSIDE.
[2019-12-16 07:45] VITALS: BP 163/106
--- NOTE | 2019-12-16 08:00 | NUR ---
PAGED DR. AYALA AND REPORTED PT BP 163/106. PT IS COMBATIVE AND PULLED OUT THE IV AGAIN. REPORTED THE SAME TO THE DR. CHAWLA AT BEDSIDE.
[2019-12-16 08:14] VITALS: BP 163/106
--- NOTE | 2019-12-16 08:35 | Progress Note ---
DATE: 12/15/2019 Medicine Progress Note SUBJECTIVE: The patient was alert today on examination, occasionally oriented, but still confused. She is much improved today compared to prior days. PHYSICAL EXAMINATION: VITAL SIGNS: She is afebrile. Pulse 91, respiratory rate is 18, blood pressure 161/99, pulse ox 99% on room air. GENERAL: Alert. On examination occasionally, she is oriented occasionally, but not often. PULMONARY: Clear to auscultation bilaterally. No wheezing, rales, or rhonchi. No crackles appreciated. CARDIOVASCULAR: Positive S1, S2. No murmurs, rubs, or gallops appreciated. ABDOMEN: Soft, nondistended and nontender to palpation. Bowel sounds present. MUSCULOSKELETAL: Unable to assess. NEUROLOGIC: Unable to assess. Confused. LABORATORY FINDINGS: Show CBC, white count 2.4, hemoglobin 11.6, hematocrit 34, platelets of 119. Chemistry; sodium 141, potassium 2.9, chloride 109, bicarb 22, anion gap of 11, BUN 5, creatinine 0.59, glucose is 76. Several serologies are pending. Microbiology noted. IMAGING STUDIES: Nothing new. IMPRESSION: 1. Acute metabolic encephalopathy secondary to acute CVA. 2. History of migraine headaches. 3. Agitation possibly secondary to acute cerebrovascular accident. 4. Subarachnoid cyst-with no intervention needed per Neurosurgery recommendations. PLAN: At this time, CTA of head and neck shows no evidence of any stenosis per Neurology. No further workup is needed. Started on IV PPN for nutrition. Per Neurology, they are scheduling a lumbar puncture tomorrow. ID also wants this as well. She continues with antipsychotics per Neurology. Continue same plan of care. Monitor closely. Stop IV fluids once, PPN initiated. MD HINA Stephens/EVENSL /[id number]
--- NOTE | 2019-12-16 08:45 | NUR ---
UNABLE TO GET VITAL SIGNS. PT IS COMBATIVE. SITTER AT BEDSIDE.
[2019-12-16] MEDS: FILGRASTIM 300 MCG/ML VIAL SC SCH (10:00)
[2019-12-16] MEDS: VALPROATE SOD INJ 500 MG in SODIUM CHLORIDE 0.9% 100 ML 100 ML IV SCH ×2 (10:25→22:37)
--- NOTE | 2019-12-16 12:14 | NUR ---
awake, calmer and more rsponsive, amnestic to last 4 days vs 98.4 161 / 99 80 awake, follows some comamnds, responds to questions, slowly and pensively, amnesia to recent evens eomi, possible ptosis right pupls reactive face appears symmetric no nuchal rigidity, left arm increased tone, no apparent weakness in right arm or leg no ataxia ap stroke - holding ASA today for LP tomorrow mental status changes -the arachnoid cyst and stroke do not explain the prolonged agitated confusion possible psych manifestation - psych suggests this is not the primary etiology of her symptoms elevated sed rate and wbc - LP tomorrow, id on board arachnoid cyst- chronic finding will monitor +rpr - id aware, LP pending EEG - pending eval for sz, subclinical sz cannot be done due to intermittent agitated aggression-
--- NOTE | 2019-12-16 13:36 | Progress Note ---
DATE: 12/16/2019 Psychiatric Progress Note SUBJECTIVE: The patient evaluated and events noted. The patient is in room, still drowsy, still not talking. She apparently intermittently wakes up and talks to the sitter, but not making sense. She is getting scheduled Ativan IV and intermittently getting Ativan p.r.n. IV with no side effects observed or reported. ASSESSMENT: Unspecified psychosis/delirium. PLAN: 1. To continue with Ativan 0.25 mg IV q.6 schedule and 0.25 mg IV q.4 hours as needed. 2. Continue with Seroquel p.r.n. 3. Continue with Haldol p.r.n. IM. 4. The patient is on Depakote as per Neurology. 5. Monitor for agitation. Dictated by Saida Loo PA-C MD BRET Laguerre/RENALDO /[id number]
--- NOTE | 2019-12-16 15:00 | NUR ---
UNABLE TO GET VITAL SIGNS FOR THE PT. ATTEMPTED MULTIPLE TIMES BY THE TECH AND RN BUT PT IS VERY COMBATIVE.
--- NOTE | 2019-12-16 15:15 | NUR ---
PAGED PT AUNT SASCHA GARCIA. OKAY FOR PICC LINE PER THE AUNT. 2 RN'S VERIFIED TELEPHONE CONSENT.
[2019-12-16] MEDS ORDERED: FENTANYL CITRATE/PF 100MCG/2 ML INJ ONE (16:55)
[2019-12-16] MEDS ORDERED: MIDAZOLAM HCL 2 MG/2 ML VIAL ONE (16:55)
--- NOTE | 2019-12-16 17:05 | NUR ---
PT OFF TO RADIOLOGY IN SAFE CONDITION.
--- NOTE | 2019-12-16 17:56 | NUR ---
pt confused combative medicated with ativan. pt still combative pt not a candidate for picc or mid handoff to nurse abeba
--- NOTE | 2019-12-16 18:22 | NUR ---
UNABLE TO INSERT PICC LINE PER THE PICC LINE RN. INFORMED THE SAME TO DR. AYALA.
--- NOTE | 2019-12-16 18:30 | NUR ---
PT IS KEEP REFUSING TO WEAR TELEMETRY BOX. INFORMED THE SAME TO DR. AYALA. NAUN TO D/C TELE PER THE
[2019-12-16] MEDS: SODIUM CHLORIDE 0.9% IV SCH (18:47)
[2019-12-16] MEDS: PENICILLIN POTASSIUM IV SCH (18:47)
--- NOTE | 2019-12-16 19:00 | NUR ---
BEDSIDE SHIFT REPORT GIVEN TO THE WHANAU SUPPORT WORKER RN. SITTER AT BEDSIDE.
--- NOTE | 2019-12-16 19:34 | Consultation ---
DATE OF CONSULTATION: SUBJECTIVE: Ms. Torres remains confused. No specific complaints was unsuccessful, one by Neurologic and one by Radiology. LABORATORY DATA: White count 6.83, hemoglobin 12. Her RPR was 1:64. Her COVID with negative. Hepatitis B surface antigen was positive. Sodium 138, potassium 3.4, creatinine 0.59. Her blood cultures remain negative. PHYSICAL EXAMINATION: GENERAL: She is currently alert, oriented, alert, confused. VITAL SIGNS: Stable, currently afebrile. HEENT: Negative. NECK: Supple. CHEST: Clear bilateral. HEART: S1, S2. ABDOMEN: Soft. IMPRESSION: Concerned about neurosyphilis. We will start her on penicillin q.6 h. Would need a PICC line plan on 14 days of treatment. Further recommendations to follow. MD KASI Escobar/RENALDO /[id number]
[2019-12-16 20:00] VITALS: BP_SYST 155; BP_SYST 99; BP_DIAS 124; BP_DIAS 76
[2019-12-16] MEDS: PERIPHERAL TPN FORMULA 1 BAG IV SCH (20:23)
[2019-12-16] MEDS: ATORVASTATIN 40 MG TAB PO SCH (21:00)
[2019-12-17] VITALS (7 sets, daily range): BP systolic 128–168; BP diastolic 72–101
[2019-12-17] MEDS: PENICILLIN POTASSIUM IV SCH ×4 (00:30→17:45)
[2019-12-17] MEDS: SODIUM CHLORIDE 0.9% IV SCH ×4 (00:30→17:45)
--- NOTE | 2019-12-17 01:19 | Progress Note ---
DATE: 12/16/2019 Medicine Progress Note SUBJECTIVE: The patient is still very combative on examination. She is still not with it. No change. LABORATORY FINDINGS: Show white count of , hemoglobin 12, hematocrit 35, platelets of 126. Chemistry, sodium 138, potassium 3.4, chloride 108, bicarb 22, anion gap of 11. BUN is 5, creatinine 0.59. Immunology, antimitochondrial DNA is slightly elevated. Anti-Morocho slightly elevated. The rest of the serologies were found to be negative to date. Peripheral smear is negative. RPR titer antigen was positive. Coronavirus is negative. Hepatitis B surface antigen is positive. HIV negative. Blood cultures, no growth. Urine cultures, no growth. IMAGING STUDIES: Nothing new. PHYSICAL EXAMINATION: VITAL SIGNS: Afebrile. Pulse 91, respiratory rate 19, blood pressure 162/106, pulse ox 100% on room air. GENERAL: No acute distress. She is occasionally combative. She is not responsive. PULMONARY: Clear to auscultation bilaterally. No wheezing, no rales, no rhonchi, no crackles appreciated. CARDIOVASCULAR: Positive S1, S2. No murmurs, rubs, or gallops appreciated. GI: Abdomen was soft, nondistended, nontender to palpation. Bowel sounds present. MUSCULOSKELETAL: Unable to assess. NEUROLOGIC: Unable to assess. SKIN: Intact. Warm to touch. Good cap refill. EXTREMITIES: No edema appreciated. IMPRESSION: 1. Acute metabolic encephalopathy, secondary to acute cerebrovascular accident. 2. History of migraine headaches. 3. Agitation, secondary to acute cerebrovascular accident. 4. Subarachnoid cyst with no intervention needed per Neurosurgery recommendations. 5. Positive RPR. Concerns for underlying neurocysticercosis. PLAN: At this time, we have spoke with ID about the positive RVR. The patient was initiated on penicillin G. I spoke with Neurology. LP was needed, but the patient was very combative and the LP will now be performed, instead it will be performed next week under anesthesia which I will go ahead and order. We initiated IV TPN as well. The patient could not get the PICC line inserted today due to being very combative. We will continue with same plan of care and monitor very closely. Discussed plan of care with all consultants. Get morning labs. MD HINA Stephens/RENALDO /[id number]
[2019-12-17] MEDS: LORAZEPAM INJ 2 MG/ML VIAL IV SCH ×5 (06:07→23:55)
[2019-12-17 06:18] LABS: ANION GAP 14.6 mmol/L (8-16); BLOOD UREA NITROGEN 8 mg/dL (7-26); BUN/CREATININE RATIO 12 (6-25); CALCIUM 8.6 mg/dL (8.4-10.2); CARBON DIOXIDE 23 mmol/L (22-29); CHLORIDE 106 mmol/L (98-107); CREATININE, SERUM 0.65 mg/dL (0.57-1.11); EST GLOMERULAR FILTRATION RATE > 60 ML/MIN (60-); GLUCOSE 77 mg/dL (74-118); MAGNESIUM 2.1 MG/DL (1.3-2.1); POTASSIUM 3.6 mmol/L (3.5-5.1); SODIUM 140 mmol/L (136-145)
--- NOTE | 2019-12-17 07:00 | NUR ---
BEDSIDE SHIFT REPORT RECEIVED FORM THE YARD ATTENDANT RN. SITTER AT BEDSIDE. CALL LIGHT WITH IN EASY REACH. BED IS LOW AND LOCKED. SIDE RAILS X2. BED ALARM IS ON.
--- NOTE | 2019-12-17 07:14 | NUR ---
REPORT GIVEN TO DAYSHIFT NURSE. ALERT AND RESTING IN BED. NO SIGNS IV INFILTRATION. BED LOCKED AND IN LOW POSITION. CALL LIGHT WITHIN REACH. BED ALARM ACTIVATED. SITTER AT BEDSIDE.
--- NOTE | 2019-12-17 07:30 | NUR ---
PT IS ALERT. VERBALIZED PT NAME. OKAY TO HAVE SIP OF LIQUID PER DR. AYALA.
[2019-12-17 10:36] LABS: BASOPHILS % 0.2 % (0.0-1.0); EOSINOPHILS # (AUTO) 0.1 (0.0-0.4); EOSINOPHILS % 0.6 % (0.0-6.0); HEMATOCRIT 37.1 % (34.2-44.1); HEMOGLOBIN 12.4 g/dL (12.0-16.0); LYMPHOCYTES # (AUTO) 1.1 (1.0-3.2); LYMPHOCYTES % 12.2 % (18.0-39.1); MEAN CORPUSCULAR HEMOGLOBIN 29.8 pg (28-32); MEAN CORPUSCULAR HGB CONC 33.4 g/dL (31-35); MEAN CORPUSCULAR VOLUME 89.2 fL (81-99); MONOCYTES # (AUTO) 0.4 (0.2-0.8); MONOCYTES % 4.4 % (4.4-11.3); NEUTROPHILS % 79.2 % (38.7-80.0); PLATELET COUNT 138 x10e3/uL (140-360); RED BLOOD COUNT 4.16 x10e6/uL (3.6-5.1)
[2019-12-17 10:42] LABS: MAGNESIUM 2.1 MG/DL (1.3-2.1); PHOSPHORUS 3.2 MG/DL (2.3-4.7)
[2019-12-17] MEDS: VALPROATE SOD INJ 500 MG in SODIUM CHLORIDE 0.9% 100 ML 100 ML IV SCH ×2 (11:02→21:27)
[2019-12-17] MEDS ORDERED: SODIUM CHLORIDE 0.9% 250ML 250 ML ONE (11:13)
--- NOTE | 2019-12-17 12:09 | NUR ---
INFECTIOUS DISEASE PROGRESS NOTE DR. JACKELIN PADILLA CC: AMS HISTORY OF PRESENT ILLNESS: This patient who is currently noncommunicative. She is a 44-year-old white female apparently comes into the hospital with altered mental status. She works at local [employer]. She is having migraine. She comes from [facility] when she was altered. She was using handicapped wheelchair. The patient was very combative, confused, agitated. She was admitted. We do not know much about her. She had MRI of the brain, showed acute nonhemorrhagic infarct along the left thalamocapsular junction. LABORATORY DATA: reviewed MEDICATIONS: per chart RADIOLOGY: per chart PHYSICAL EXAMINATION: VS: per chart GENERAL: She is noncommunicative, AMS HEENT: normocephalic, atraumatic NECK: Supple. no JVD CHEST: Diminished, aerating well COR: S1, S2. without s3, s4 ABDOMEN: Soft. non-tender EXT: lymphedema, obese, no joint swelling Psych: altered IMPRESSION: Altered mental status Neurosyphilis - likely, LP pending +RPR Titer 1:64 w/ positive FTA PLAN PCN G dosed per pharmacist x14 days Continues to be altered Will monitor progress LP scheduled for next week Selena Lane MSN, BI ANALYST, AGACNP-BC Jackelin Padilla M.D.
--- NOTE | 2019-12-17 12:20 | NUR ---
Nutrition Intervention Note RD Recommendation(s) for Physician: -Continue PN as ordered -BMP, Phos, Mag repeat daily; prealbumin, LFT, TG monitor weekly -Continue with TPN per MD until diet is advanced and intake >50% -Obtain daily weight Plan of Care: RD following, monitoring for tolerance and adequacy, PN Nutrition reason for involvement: LOS/ TPN RD Assessment 12/16 - 44yo F, who was admitted to [facility] for AMS. No previous medical history in chart. Pt continues to be combative, confused and agitated. Per RN, pt is receiving TPN via PICC as ordered. Principal Problems/Diagnoses: 1.Acute metabolic encephalopathy, secondary to acute cerebrovascular accident. 2.Agitation, secondary to acute cerebrovascular accident. 3.Positive RPR. Concerns for underlying neurocysticercosis. PMH: Unable to obtain I/O: +2000ml/ -1500ml TPN: (30% dextrose, 15% AA) @ 85 mL/hr, providing 2040 ml total volume/day, 305 g dextrose, 102 g AA. Total kcal including lipids of 50 gm, MWF total 1641 kcal/day Meets 105% of her est calorie and 100% est protein needs. GI: soft, non-tender, no BM recorded Skin: intact Labs: (12/16) reviewed, WNL Meds: ativan, TPN Ht: 63in Wt: 300lb BMI: 53.1kg/m2 IBW: 115lb +/- 10% Malnutrition Evaluation (12/17/2019) The patient does not meet criteria for a specified degree of malnutrition at this time. Will re-evaluate at follow-up as appropriate. Energy intake: <75% of estimated energy requirements for >7 days Weight loss: No daily weight recorded in chart Fat loss: no loss identified Muscle loss: no loss identified Supporting Evidence: Fluid accumulation: unable to evaluate Functional Status: unable to evaluate Nutrition Prescription (Diet Order): NPO Estimated Nutritional Needs: Calories: 1300 1560kcal (25-30kcal/kg) Weight used: IBW Protein: 78 130g (1.5-2.5g/kg) Weight used: IBW Diet Adequacy: Meeting calorie needs, Meeting protein needs, Meeting fluid needs Tolerance: Tolerating TPN Diet Education Needs Assessment: Diet education not indicated. Nutrition Care Level: high Nutrition Diagnosis: Inadequate oral intake related to AMS and combative as evidenced by initiation of TPN. Goal: Patient will meet 75-100% of estimated needs by follow up Progress: Goal Met Interventions: Composition, Rate, Route, IVF Monitoring/Evaluation: Total energy intake, Total protein intake, Formula/Solution, IVF, Weight change Signed: Shital Naranjo MS, RD, LD
--- NOTE | 2019-12-17 16:00 | NUR ---
PT PULLED OUT RAC 20 G IV. TIP INTACT. DRESSING APPLIED. NO DISTRESS NOTED. SITTER AT BEDSIDE.
--- NOTE | 2019-12-17 19:00 | NUR ---
Resumed care of patient. Patient resting quietly in bed, respirations even and unlabored on room air, no s/s of distress at this time. Bed locked and in lowest position, side rails upx3, alarm on, call light placed within reach. 1:1 sitter at bedside. All safety measures in place.
--- NOTE | 2019-12-17 19:00 | NUR ---
BEDSIDE SHIFT REPORT GIVEN TO THE COUNSELOR AT LAW RN. SITTER AT BEDSIDE.
[2019-12-17] MEDS: ATORVASTATIN 40 MG TAB PO SCH (21:00)
[2019-12-17] MEDS: PERIPHERAL TPN FORMULA 1 BAG IV SCH (22:35)
[2019-12-18] MEDS ORDERED: PENICILLIN G POTASSIUM 5,000,000 UNIT VIAL ONE (00:04)
[2019-12-18] MEDS: SODIUM CHLORIDE 0.9% IV SCH ×5 (00:22→23:53)
[2019-12-18] MEDS: PENICILLIN POTASSIUM IV SCH ×5 (00:22→23:53)
--- NOTE | 2019-12-18 01:33 | Progress Note ---
DATE: 12/17/2019 Medicine Progress Note SUBJECTIVE: The patient was alert today on examination. She was able to answer a couple of questions for me, but she is still very combative requiring sedation. We were initiating some liquid diet to see if she can tolerate that. According to the nursing staff. She was tolerating it very well. PHYSICAL EXAMINATION: VITAL SIGNS: Temperature is 98.2, pulse 90, respiratory rate is 19, blood pressure 128/94, and pulse ox 98% on room air. LABORATORY DATA: White count 8.8, hemoglobin 12, hematocrit 37, and platelets of 138. Chemistry reviewed, found to be within normal range. Immunology studies; anti-zimmer antibody was elevated, scleroderma, double-stranded DNA was found to be normal range. Anti-mitochondrial was elevated. C4 was low at 16. Thyroid peroxidase levels less than 9. BEVERLEY was negative. Anti-Sandee SSA/SSB all negative. Microbiology no growth. IMAGING STUDIES: Nothing new. PHYSICAL EXAMINATION: GENERAL: She was alert. She was awake. She was oriented only x1, but she is very combative. PULMONARY: Clear to auscultation bilaterally. No wheezing, rales, or rhonchi. No crackles appreciated. CARDIOVASCULAR: Positive S1 and S2. No murmurs, gallops, or rubs. ABDOMEN: Soft, nondistended, and nontender to palpation. Bowel sounds present. MUSCULOSKELETAL: Unable to assess. NEUROLOGIC: Unable to assess. IMPRESSION: 1. Metabolic encephalopathy secondary to acute CVA and possibly underlying neurosyphilis. 2. History of migraine headaches. 3. Agitation. 4. Subarachnoid cyst with no intervention needed by Neurosurgery. 5. Neurosyphilis. PLAN: At this time, the patient has been initiated with penicillin G as per ID recommendations. She will likely need this for a minimum of 2 weeks. We will consult IR on Thursday to have an LP performed under sedation. As for Neurology, we will continue same plan of care. Continue with IV PPN, initiate a full liquid diet as tolerated. Hold anticoagulation for now. Try to talk to the family for further assist in care. MD HINA Stephens/RENALDO /[id number]
[2019-12-18 04:00] VITALS: BP 147/97
[2019-12-18 06:20] LABS: ANION GAP 13.9 mmol/L (8-16); BLOOD UREA NITROGEN 16 mg/dL (7-26); BUN/CREATININE RATIO 25 (6-25); CALCIUM 9.2 mg/dL (8.4-10.2); CARBON DIOXIDE 21 mmol/L (22-29); CHLORIDE 105 mmol/L (98-107); CREATININE, SERUM 0.64 mg/dL (0.57-1.11); EST GLOMERULAR FILTRATION RATE > 60 ML/MIN (60-); GLUCOSE 91 mg/dL (74-118); MAGNESIUM 2.4 MG/DL (1.3-2.1); PHOSPHORUS 4.7 MG/DL (2.3-4.7); POTASSIUM 3.9 mmol/L (3.5-5.1); SODIUM 136 mmol/L (136-145)
[2019-12-18] MEDS: LORAZEPAM INJ 2 MG/ML VIAL IV SCH ×4 (06:22→23:53)
--- NOTE | 2019-12-18 07:17 | NUR ---
Bedside report given to oncoming nurse. Patient resting quietly in bed, no s/s of distress at this time. 1:1 sitter at bedside. All safety measures in place.
[2019-12-18] MEDS: VALPROATE SOD INJ 500 MG in SODIUM CHLORIDE 0.9% 100 ML 100 ML IV SCH ×2 (10:05→21:12)
[2019-12-18 10:07] VITALS: BP 147/97
[2019-12-18 11:26] VITALS: BP 195/106
--- NOTE | 2019-12-18 14:11 | NUR ---
calm, more responsive today vs 98.3 90 142/72 awake, follows some comamnds, responds to questions, slowly and pensively, amnesia to recent evens eomi, possible ptosis right pupls reactive face appears symmetric no nuchal rigidity, left arm increased tone, no apparent weakness in right arm or leg no ataxia ap stroke - holding ASA today for LP tomorrow mental status changes -the arachnoid cyst and stroke do not explain the prolonged agitated confusion possible psych manifestation - psych suggests this is not the primary etiology of her symptoms elevated sed rate and wbc - LP tomorrow, id on board arachnoid cyst- chronic finding will monitor +rpr - id aware, LP pending EEG - pending eval for sz, subclinical sz cannot be done due to intermittent agitated aggression-
--- NOTE | 2019-12-18 19:00 | NUR ---
Resumed care of patient. Patient resting quietly in bed, respirations even and unlabored, no s/s of distress at this time. All safety measures in place. 1:1 sitter at bedside.
--- NOTE | 2019-12-18 19:05 | NUR ---
Dr. Hare here to see patient. Per MD make sure to pass along to day shift that lumbar puncture needs to be performed with anesthesia due to patient combativeness. Received orders to consult IR for PICC line placement for long-term IV antibiotics. Per MD plan to infuse one more bag of TPN.
[2019-12-18 20:00] VITALS: BP 130/80
[2019-12-18 20:18] VITALS: BP 130/80
[2019-12-18 20:52] VITALS: BP 130/80
[2019-12-18] MEDS: ATORVASTATIN 40 MG TAB PO SCH (21:00)
[2019-12-18] MEDS: PERIPHERAL TPN FORMULA 1 BAG IV SCH (22:16)
--- NOTE | 2019-12-18 23:56 | Progress Note ---
DATE: 12/18/2019 SUBJECTIVE: The patient apparently ate breakfast today and lunch. She did have her IV infiltrated where her PPN is. We are having difficulty inserting a peripheral line, but she does have one secured right now. PHYSICAL EXAMINATION: VITAL SIGNS: Temperature is 97.8, pulse 78, respiratory rate is 18, blood pressure is 130/80, pulse ox 98% on room air. GENERAL: She was asleep during my evaluation. PULMONARY: Clear to auscultation bilaterally. No wheezing, rales, or rhonchi. No crackles appreciated. CARDIOVASCULAR: Positive S1 and S2. No murmurs, rubs, or gallops appreciated. ABDOMEN: Soft, nondistended, nontender to palpation. Bowel sounds present. MUSCULOSKELETAL: Unable to assess. NEUROLOGIC: Unable to assess at this time. LABORATORY DATA: Labs show white count was 8.8, hemoglobin 12, hematocrit is 37, and platelets of 138. Chemistry reviewed, stable. Magnesium was 2.4, slightly elevated. IMPRESSION: 1. Metabolic encephalopathy secondary to acute cerebrovascular accident and possibly underlying neurosyphilis. 2. History of migraine headaches. 3. Agitation. 4. Subarachnoid cyst with no intervention needed by Neurosurgery. 5. Neurosyphilis. PLAN: At this time, continue with penicillin G as per ID recommendations. LP scheduled for tomorrow with anesthesia and we will also place a PICC line. Since the patient was doing much better today, we will probably consider today is the day of PPN and consider regular food tomorrow. She seems to be improving on a daily basis according to the staff. MD HINA Stephens/RENALDO /[id number]
[2019-12-19] VITALS (7 sets, daily range): BP systolic 113–146; BP diastolic 73–110
[2019-12-19] MEDS: SODIUM CHLORIDE 0.9% IV SCH ×3 (05:17→18:07)
[2019-12-19] MEDS: LORAZEPAM INJ 2 MG/ML VIAL IV SCH ×3 (05:17→22:00)
[2019-12-19] MEDS: PENICILLIN POTASSIUM IV SCH ×3 (05:17→18:07)
[2019-12-19 06:03] LABS: BASOPHILS # (AUTO) 0.1 (0.0-0.1); BASOPHILS % 1.6 % (0.0-1.0); EOSINOPHILS # (AUTO) 0.1 (0.0-0.4); EOSINOPHILS % 1.6 % (0.0-6.0); HEMATOCRIT 35.8 % (34.2-44.1); LYMPHOCYTES # (AUTO) 1.1 (1.0-3.2); LYMPHOCYTES % 33.5 % (18.0-39.1); MEAN CORPUSCULAR HEMOGLOBIN 29.6 pg (28-32); MEAN CORPUSCULAR HGB CONC 33.5 g/dL (31-35); MEAN CORPUSCULAR VOLUME 88.2 fL (81-99); MONOCYTES # (AUTO) 0.3 (0.2-0.8); MONOCYTES % 8.9 % (4.4-11.3); NEUTROPHILS # (AUTO) 1.5 (2.1-6.9); NEUTROPHILS % 48.1 % (38.7-80.0); PLATELET COUNT 126 x10e3/uL (140-360); RED BLOOD COUNT 4.06 x10e6/uL (3.6-5.1); RED CELL DISTRIBUTION WIDTH 13.8 % (11.7-14.4)
[2019-12-19 06:23] LABS: ANION GAP 11.3 mmol/L (8-16); BLOOD UREA NITROGEN 12 mg/dL (7-26); BUN/CREATININE RATIO 19 (6-25); CALCIUM 8.5 mg/dL (8.4-10.2); CARBON DIOXIDE 23 mmol/L (22-29); CHLORIDE 108 mmol/L (98-107); CREATININE, SERUM 0.62 mg/dL (0.57-1.11); EST GLOMERULAR FILTRATION RATE > 60 ML/MIN (60-); GLUCOSE 81 mg/dL (74-118); POTASSIUM 4.3 mmol/L (3.5-5.1); SODIUM 138 mmol/L (136-145)
--- NOTE | 2019-12-19 07:00 | NUR ---
BEDSIDE SHIFT REPORT RECEIVED FROM CARRIE LEMUS. PT DENIES NEEDS.
[2019-12-19] MEDS: VALPROATE SOD INJ 500 MG in SODIUM CHLORIDE 0.9% 100 ML 100 ML IV SCH ×2 (08:44→21:00)
--- NOTE | 2019-12-19 11:14 | Progress Note ---
DATE: SUBJECTIVE: Ms. Torres remains confused. No new complaints. REVIEW OF SYSTEMS: Unremarkable, could not be obtained, but seems little bit more better. PHYSICAL EXAMINATION: GENERAL: Currently alert. VITAL SIGNS: Stable, afebrile. HEENT: Not icteric. NECK: Supple. CHEST: Crackles. HEART: S1-S2. ABDOMEN: Soft, bowel sounds present. EXTREMITIES: No edema. SKIN: No rash. IMPRESSION: The patient concerned about neurosyphilis, on penicillin for 2 weeks. Her RPR was positive to 164. Her COVID was negative, hepatitis B surface antigen was positive, concerned about hepatitis. Hepatitis B was positive, to finish 14 days of penicillin. Altered mental status, Neurology is following, we will follow. MD KASI Escobar/MODL /[id number]
--- NOTE | 2019-12-19 11:40 | Diagnostic Imaging Report ---
Chest, 1 view, 12/19/2019. History: PICC. Comparison: None available. Findings: The cardiomediastinal silhouette and pulmonary vasculature are within normal limits for a portable exam. There is no focal consolidation or pleural effusion. A new right extremity PICC is present terminating near the cavoatrial junction. There are no acute osseous or soft tissue abnormalities. Impression: No acute cardiopulmonary abnormality. PICC in adequate position. Signed by: Kalpesh Chen on 12/19/2019 11:37 AM
[2019-12-19] MEDS ORDERED: LABETALOL HCL 20 ML ONE (11:41)
[2019-12-19] MEDS ORDERED: FILGRASTIM 300 MCG/ML VIAL SC ONE (12:00)
[2019-12-19] MEDS ORDERED: PROPOFOL IV EMULSION 10 MG/ML 20 ML VIAL ONE (12:02)
[2019-12-19] MEDS ORDERED: LIDOCAINE HCL 2% LOCAL INJ 5 ML SDV VIAL INJ ONE (12:02)
[2019-12-19 12:39] LABS: APPEARANCE,CSF CLEAR (CLEAR)
[2019-12-19 12:40] LABS: COLOR,CSF COLORLESS (COLORLESS); TUBE NUMBER 3; WHITE BLOOD CELL,CSF 10 cells/uL (0-5)
--- NOTE | 2019-12-19 13:36 | Diagnostic Imaging Report ---
Fluoroscopic-guided lumbar puncture. History: Altered metal status. Vibrating Screed Operator: Dr. Chen. Medication: Patient was under MAC. Anesthesia: 5 cc of 1% lidocaine without epinephrine. Contrast: None. Fluoro time: 0.1 min. Dose: 1.9 mGy (FADUMO) Specimen: 12 cc of clear CSF. Discussion: After informed consent was obtained, the patient's back was prepped and draped in a sterile fashion. The skin was anesthetized with 1% lidocaine without epinephrine. Using fluoroscopic guidance, a 22 gauge 3.5 inch long spinal needle was advanced into the spinal canal at the level of L2-L3. Clear colorless CSF was visualized and obtained and sent to the laboratory for studies. The patient tolerated the procedure well without evidence of immediate complication. IMPRESSION: Successful fluoroscopic guided LP. Signed by: Kalpesh Chen on 12/19/2019 1:32 PM
[2019-12-19 13:49] LABS: LYMPHOCYTES,CSF 78 % (40-80); MONOCYTES,CSF 7 %; NEUTROPHILS,CSF 15 % (0-6)
--- NOTE | 2019-12-19 13:56 | NUR ---
CALLED AND SPOKE WITH AUNT DEEPA, SHE WILL COME TOMORROW TO SEE PT AND MAKE A DECISION OF LTAC. PACKET IN CM OFFICE
[2019-12-19] MEDS ORDERED: MIDAZOLAM HCL 5 MG/ML VIAL ONE (17:46)
[2019-12-19] MEDS ORDERED: FENTANYL CITRATE/PF 100MCG/2 ML INJ ONE (17:46)
--- NOTE | 2019-12-19 18:07 | NUR ---
PT WAS ABLE TO EAT 75% OF DIET. PT TOLERATED. PT WAS VERY AROUSABLE.
--- NOTE | 2019-12-19 19:44 | NUR ---
RECEIVED PT IN BED AOX1 ,PT IS LETHARGIC AND NOT ANSWERING QUESTIONS ,BUT SHAKING HEAD ,SITTER AT THE BEDSIDE ,CONTINUE TO MONITOR
--- NOTE | 2019-12-19 20:39 | NUR ---
calm, more responsive today vs 97.6 82 146/86 awake, follows some commands, responds to questions, slowly and pensively, amnesia to recent evens eomi, possible ptosis right resolved pupls reactive face appears symmetric no nuchal rigidity, left arm increased tone, no apparent weakness in right arm or leg no ataxia ap stroke - reinitaite ASA - LP completed, mild leukocytosis, serology shows + zimmer and anti-mitichondrial antibodies. mental status changes -the arachnoid cyst and stroke do not explain the prolonged agitated confusion possible psych manifestation - psych suggests this is not the primary etiology of her symptoms elevated sed rate and wbc - arachnoid cyst- chronic finding will monitor steroids for concern for vasculitis.
[2019-12-19] MEDS: ATORVASTATIN 40 MG TAB PO SCH (20:49)
[2019-12-20] VITALS (7 sets, daily range): BP systolic 129–172; BP diastolic 90–116
[2019-12-20] MEDS: SODIUM CHLORIDE 0.9% IV SCH ×4 (00:16→17:26)
[2019-12-20] MEDS: PENICILLIN POTASSIUM IV SCH ×4 (00:16→17:26)
[2019-12-20] MEDS: DEXTROSE 5%/0.45% SOD CHL 1,000 ML IV SCH ×2 (00:19→13:38)
--- NOTE | 2019-12-20 03:57 | Progress Note ---
DATE: 12/19/2019 Medicine Progress Note SUBJECTIVE: The patient underwent LP today and a PICC line placed under anesthesia by Interventional Radiology. She is apparently eating much better today with no issues but not eating a whole lot according to the nursing staff. LABORATORY DATA: CBC: White count 3.1, hemoglobin 12, hematocrit 35.8, platelets of 126. Chemistry, sodium 138, potassium 4.3, chloride 108, bicarb 23, anion gap of 11.3. BUN 12, creatinine 0.62. Glucose was 63, but this morning was 81. Urinalysis negative. LP is very colorless. WBCs 10, RBCs 4, neutrophil count was 15, and lymphocyte was 78. VDRL pending. HIV nonreactive. MICROBIOLOGY: CSF pending. Blood cultures, no growth. Urine cultures were negative. PHYSICAL EXAMINATION: VITAL SIGNS: Temperature 98.1, pulse 93, respirations 20, blood pressure 146/91, pulse ox 96% on room air. GENERAL: No acute distress. She is confused on examination. PULMONARY: Clear to auscultation bilaterally. No wheezing, rales, or rhonchi. CARDIOVASCULAR: Positive S1 and S2. No murmurs, rubs, or gallops appreciated. ABDOMEN: Soft, nondistended, nontender to palpation. MUSCULOSKELETAL: Unable to assess. NEUROLOGIC: Unable to assess. IMPRESSION: 1. Metabolic encephalopathy, secondary to acute cerebrovascular accident and possibly underlying neurosyphilis. 2. History of migraine headaches. 3. Agitation. 4. Subarachnoid cyst with no intervention needed by Neurosurgery. 5. Neurosyphilis. PLAN: At this time, the patient had an LP today as well as a PICC line. Results will be following. Continue with IV penicillin G high doses and ID is following. Neurology is also following as well. Continue with nutrition regular diet, apparently she is eating very well. We will consider removal of PPN, but it seems she may need to continue it. Lovenox for DVT prophylaxis. Overall plan, transfer to an LTAC. MD HINA Stephens/RENALDO /[id number]
[2019-12-20] MEDS: LORAZEPAM INJ 2 MG/ML VIAL IV PRN ×2 (04:55→21:58)
[2019-12-20] MEDS: LORAZEPAM INJ 2 MG/ML VIAL IV SCH ×2 (06:00→14:00)
--- NOTE | 2019-12-20 06:50 | NUR ---
PT RESTING ,AGITATED DURING THE NIGHT AND GIVEN ORDERED ATIVAN X1 SITTER AT TH BEDSIDE ,CALL LIGHT WITH IN REACH .CONTINUE TO MONITOR
--- NOTE | 2019-12-20 07:00 | NUR ---
BEDSIDE SHIFT REPORT RECEIVED FROM INTERIOR ASSEMBLIES INSTALLER RN. PT DENIES NEEDS.
--- NOTE | 2019-12-20 07:21 | NUR ---
BEDSIDE REPORT GIVEN TO THE ONCOMING NURSE
[2019-12-20 07:32] LABS: BASOPHILS % 0.4 % (0.0-1.0); EOSINOPHILS # (AUTO) 0.1 (0.0-0.4); EOSINOPHILS % 1.3 % (0.0-6.0); HEMATOCRIT 33.2 % (34.2-44.1); HEMOGLOBIN 11.1 g/dL (12.0-16.0); LYMPHOCYTES # (AUTO) 1.1 (1.0-3.2); LYMPHOCYTES % 23.7 % (18.0-39.1); MEAN CORPUSCULAR HEMOGLOBIN 29.8 pg (28-32); MEAN CORPUSCULAR HGB CONC 33.4 g/dL (31-35); MEAN CORPUSCULAR VOLUME 89.2 fL (81-99); MONOCYTES # (AUTO) 0.5 (0.2-0.8); NEUTROPHILS # (AUTO) 2.9 (2.1-6.9); NEUTROPHILS % 61.8 % (38.7-80.0); PLATELET COUNT 95 x10e3/uL (140-360); RED BLOOD COUNT 3.72 x10e6/uL (3.6-5.1); RED CELL DISTRIBUTION WIDTH 13.9 % (11.7-14.4)
[2019-12-20] MEDS: PREDNISONE 10 MG TAB PO SCH ×2 (07:59→17:25)
[2019-12-20] MEDS: VALPROATE SOD INJ 500 MG in SODIUM CHLORIDE 0.9% 100 ML 100 ML IV SCH ×2 (07:59→21:00)
--- NOTE | 2019-12-20 08:32 | NUR ---
asleep but arousable, able to have coherent conversation is not aware of situation vs 98.1 97 146/91 awake, oreinted x 1 eomi left eye ptosis face symmetric speech clear no nuchal rigidity reflexes 1/4 motor 5/5 a/p infectious encpehalopathy - on antibiotics possibly neurosyphillis-being treated w/ antibiotics LP + inflamatory cells on aed arachnoid cyst is incidental
--- NOTE | 2019-12-20 16:25 | NUR ---
INFECTIOUS DISEASE PROGRESS NOTE DR. JACKELIN PADILLA CC: AMS HISTORY OF PRESENT ILLNESS: This patient who is currently noncommunicative. She is a 44-year-old white female apparently comes into the hospital with altered mental status. She works at local [employer]. She is having migraine. She comes from [facility] when she was altered. She was using handicapped wheelchair. The patient was very combative, confused, agitated. She was admitted. We do not know much about her. She had MRI of the brain, showed acute nonhemorrhagic infarct along the left thalamocapsular junction. ROS: unable to obtain, altered LABORATORY DATA: reviewed MEDICATIONS: per chart RADIOLOGY: per chart PHYSICAL EXAMINATION: VS: per chart GENERAL: She is noncommunicative, AMS HEENT: normocephalic, atraumatic NECK: Supple. no JVD CHEST: Diminished, aerating well COR: S1, S2. without s3, s4 ABDOMEN: Soft. non-tender EXT: lymphedema, obese, no joint swelling Psych: altered IMPRESSION: Altered mental status Neurosyphilis - likely, LP pending +RPR Titer 1:64 w/ positive FTA PLAN PCN G dosed per pharmacist x14 days continues with AMS this visit Selena Lane MSN, BILLET RECORDER, AGACNP-BC Jackelin Padilla M.D.
--- NOTE | 2019-12-20 18:45 | Progress Note ---
DATE: 12/19/2019 Psychiatric Progress Note SUBJECTIVE: The patient was evaluated and events noted. The patient is found to be in the room. She is lethargic. She is not arousable. She is getting scheduled medication, but no p.r.n. medication. As per nurse, the patient is intermittently waking up and feeding herself food. ASSESSMENT: Unspecified psychosis/delirium. PLAN: 1. To reduce Ativan 0.25 mg IV q.6 hours scheduled to 0.25 mg IV q.8 hour as scheduled. 2. Continue Ativan 0.25 mg IV q.4 hours. 3. Continue with Seroquel p.r.n. 4. Continue with Haldol p.r.n. IM. 5. Monitor for agitation. The patient is on Depakote as per Neurology. 6. Monitor for change in mental status. Dictated by Saida Loo PA-C MD SIENNA LaguerreV/RENALDO /[id number]
--- NOTE | 2019-12-20 19:10 | Progress Note ---
DATE: 12/20/2019 Psychiatric Progress Note SUBJECTIVE: The patient is evaluated and events noted. The patient is in the room with a sitter. She is alert and awake. She is calm, able to report where she is. Does not know the year. Apparently, have been talking to her friend on the phone, intermittently making sense of . The patient is eating as per the sitter. She is getting p.r.n. IV medication, but also has not been taking scheduled Ativan. She is doing better. No side effects seen or reported. ASSESSMENT: Unspecified psychosis/delirium, improved. PLAN: 1. To discontinue Ativan IV schedule. 2. Continue Ativan p.r.n. IV. 3. Monitor for agitation. 4. Continue with Seroquel, Haldol p.r.n.. 5. Depakote as per Neurology. Dictated by Saida Loo PA-C Katrina Parekh MD QTV/MODL /[id number]
--- NOTE | 2019-12-20 20:06 | NUR ---
RECEIVED PT IN BED ALERT .PT IS MORE ALERT THAN YESTERDAY ,PT DENIES PAIN IV INFUSING AT RT UPPER PICC LINE SITTER AT THE BEDSIDE PT TRY TO GET OUT OF THE BED TO URINATE .GIVEN BEDSIDE COMMODE TO URINATE AND PUT THE PT BACK TO BED PT IS VERY UNSTABLE ,CONTINUE TO MONITOR
[2019-12-20] MEDS: ATORVASTATIN 40 MG TAB PO SCH (21:00)
[2019-12-21] VITALS: BP 194/102
[2019-12-21] MEDS: HYDRALAZINE HCL 20 MG/ML VIAL IV PRN (01:51)
[2019-12-21] MEDS: DEXTROSE 5%/0.45% SOD CHL 1,000 ML IV SCH ×2 (03:22→16:15)
--- NOTE | 2019-12-21 03:31 | Progress Note ---
DATE: 12/20/2019 SUBJECTIVE: The patient is doing much better today with no complaints. She is actually eating according to the nursing staff. She ate breakfast and lunch. She is much more with it now. PHYSICAL EXAMINATION: VITAL SIGNS: Temperature 98, pulse 89, respiration is 18, blood pressure was 170/116, pulse ox 96% on room air. GENERAL: Not in acute distress. She was sleeping today and she was able to answer few questions. PULMONARY: Clear to auscultation bilaterally. No rales or rhonchi. No crackles appreciated. CARDIOVASCULAR: Positive S1 and S2. No murmurs, rubs, or gallops appreciated. ABDOMEN: Soft, nondistended, nontender to palpation. Bowel sounds present. MUSCULOSKELETAL: Unable to assess. NEUROLOGIC: Unable to assess. LABORATORY FINDINGS: Show CBC; stable. Chemistry; reviewed, stable. Microbiology; CSF showed no organisms. IMPRESSION: 1. Metabolic encephalopathy secondary to acute cerebrovascular accident and possibly underlying neurosyphilis. 2. History of migraine headaches. 3. Agitation. 4. Subarachnoid cyst with no intervention needed by Neurosurgery. 5. Neurosyphilis. PLAN: At this time, continue with IV penicillin G as per ID recommendations. She is eating much better. Go ahead and discontinue PPN. Lovenox for DVT prophylaxis. Plan to transfer now to inpatient rehab in which physical medicine rehab has been consulted. MD HINA Stephens/RENALDO /[id number]
[2019-12-21] MEDS: LORAZEPAM INJ 2 MG/ML VIAL IV PRN (04:15)
[2019-12-21 04:29] VITALS: BP 144/92
--- NOTE | 2019-12-21 05:13 | NUR ---
DURING THE NIGHT PT AGITATED AND SLEPT OFF AND ON .PT WAS TRYING TO PULL THE PICC LINE .SITTER AT THE BEDSIDE B/P WAS HIGH AND GIVEN B/P AND B/P CAM DOWN .VIRI LIGHT WITH IN REACH ,CONTINUE TO MONITOR
[2019-12-21] MEDS: PENICILLIN POTASSIUM IV SCH ×7 (06:00→23:42)
[2019-12-21] MEDS: SODIUM CHLORIDE 0.9% IV SCH ×7 (06:00→23:42)
[2019-12-21 06:19] LABS: BASOPHILS # (AUTO) 0.1 (0.0-0.1); BASOPHILS % 1.5 % (0.0-1.0); EOSINOPHILS % 0.2 % (0.0-6.0); HEMATOCRIT 35.4 % (34.2-44.1); HEMOGLOBIN 11.9 g/dL (12.0-16.0); LYMPHOCYTES # (AUTO) 1.5 (1.0-3.2); LYMPHOCYTES % 24.4 % (18.0-39.1); MEAN CORPUSCULAR HEMOGLOBIN 29.5 pg (28-32); MEAN CORPUSCULAR HGB CONC 33.6 g/dL (31-35); MEAN CORPUSCULAR VOLUME 87.6 fL (81-99); MONOCYTES # (AUTO) 0.5 (0.2-0.8); MONOCYTES % 7.6 % (4.4-11.3); NEUTROPHILS # (AUTO) 3.2 (2.1-6.9); NEUTROPHILS % 51.7 % (38.7-80.0); PLATELET COUNT 120 x10e3/uL (140-360); RED BLOOD COUNT 4.04 x10e6/uL (3.6-5.1); RED CELL DISTRIBUTION WIDTH 13.5 % (11.7-14.4)
[2019-12-21 06:30] LABS: ANION GAP 11.7 mmol/L (8-16); BLOOD UREA NITROGEN 8 mg/dL (7-26); BUN/CREATININE RATIO 14 (6-25); CALCIUM 8.8 mg/dL (8.4-10.2); CARBON DIOXIDE 24 mmol/L (22-29); CHLORIDE 109 mmol/L (98-107); CREATININE, SERUM 0.59 mg/dL (0.57-1.11); EST GLOMERULAR FILTRATION RATE > 60 ML/MIN (60-); GLUCOSE 122 mg/dL (74-118); POTASSIUM 3.7 mmol/L (3.5-5.1); SODIUM 141 mmol/L (136-145)
--- NOTE | 2019-12-21 07:00 | NUR ---
BEDSIDE SHIFT REPORT RECEIVED FROM IT TECHNICAL ARCHITECT RN. PT DENIES NEEDS.
--- NOTE | 2019-12-21 07:20 | NUR ---
BEDSIDE REPORT GIVEN TO THE ONCOMING NURSE
--- NOTE | 2019-12-21 07:36 | NUR ---
asleep but arousable, able to have coherent conversation is not aware of situation vs 97.6 168/111 21 89 awake, oriented x 1 eomi left eye ptosis face symmetric speech clear no nuchal rigidity reflexes 1/4 motor 5/5 a/p infectious encpehalopathy - on antibiotics possibly neurosyphillis-being treated w/ antibiotics LP + inflamatory cells on aed - goal depakote level 50-80 - recheck levels arachnoid cyst is incidental outpt monitoring going forward neuro follow up 3 weeks after discharge patient will require cognitive rehab
[2019-12-21 07:47] LABS: BAND NEUTROPHILS % (MANUAL) 1 %
[2019-12-21 07:48] LABS: PLATELET ESTIMATE SLIGHTLY DECREASED; PLATELET MORPHOLOGY COMMENT NORMAL; RBC MORPHOLOGY COMMENT NORMAL
[2019-12-21 07:51] LABS: LYMPHOCYTES % (MANUAL) 28 % (19-48); METAMYELOCYTES % (MANUAL) 2 % (0-0); MONOCYTES % (MANUAL) 8 % (3.4-9.0); MYELOCYTES % (MANUAL) 6 % (0-0); NEUTROPHILS % (MANUAL) 55 % (40-74)
[2019-12-21 07:57] VITALS: BP 179/109
[2019-12-21 08:52] VITALS: BP 179/109
[2019-12-21] MEDS: VALPROATE SOD INJ 500 MG in SODIUM CHLORIDE 0.9% 100 ML 100 ML IV SCH ×2 (09:19→21:03)
[2019-12-21] MEDS: PREDNISONE 10 MG TAB PO SCH ×2 (09:19→16:16)
--- NOTE | 2019-12-21 11:48 | Progress Note ---
DATE: SUBJECTIVE: She seems to be alert. She is still little bit confused. PHYSICAL EXAMINATION: GENERAL: She is currently alert and oriented. VITAL SIGNS: Stable, currently afebrile. HEENT: She is not icteric. NECK: Supple. CHEST: Clear. HEART: S1 and S2. ABDOMEN: Soft. Bowel sounds present. EXTREMITIES: No edema. Obese. She has this rash on her skin. IMPRESSION: Neurosyphilis. Skin rash. We will obtain skin biopsy. Continue with penicillin. We will do 4 million units q.6. Obtain skin biopsy. Placement. To finish course of antibiotic per Internal Medicine. We will follow. MD KASI Escobar/RENALDO /[id number]
--- NOTE | 2019-12-21 15:55 | NUR ---
CALLED AUNT DEEPA 3 TIMES THROUGHOUT DAY WITH NO ANSWER AT [phone], CALLED COUSIN DARINEL [phone], DISCUSSED REHAB AND NEED FOR A FAMILY TO MAKE A DECISON CHOICE FOR JUICE
--- NOTE | 2019-12-21 16:25 | Progress Note ---
DATE: 12/21/2019 Medicine Progress Note SUBJECTIVE: The patient is doing well today with no other issues. She is tolerating her lunch and her breakfast. She is feeding herself. Occasionally, she is confused, but overall much improved. Working on placement for her. Working with PT and OT. PHYSICAL EXAMINATION: VITAL SIGNS: Temperature 97.9, pulse 83, respiratory rate is 18, blood pressure is 144/92, and pulse ox 98% on room air. GENERAL: Not in acute distress. She is oriented x2. She is very cooperative now, occasionally combative. PULMONARY: Clear to auscultation bilaterally. No wheezing, no rales, no rhonchi, no crackles appreciated. CARDIOVASCULAR: Positive S1 and S2. No murmurs, rubs, or gallops appreciated. ABDOMEN: Soft, nondistended, and nontender to palpation. Bowel sounds present. MUSCULOSKELETAL: Strength is 5/5 throughout. No evidence of any muscle deficits on examination. SKIN: Intact. Warm to touch. Good cap refill. LABORATORY FINDINGS: Show white count was 6.1, hemoglobin 11.9, hematocrit is 35, and platelets of 120. Chemistry reviewed and stable. MICROBIOLOGY: CSF analysis shows no organisms. Blood cultures, no growth. Urine cultures were negative. IMAGING STUDIES: Nothing new. PATHOLOGY: Nothing new. IMPRESSION: 1. Metabolic encephalopathy secondary to acute cerebrovascular accident as well as underlying neurosyphilis, now improving. 2. History of migraine headaches. 3. Agitation, improving. 4. Subarachnoid cyst with no intervention needed by Neurosurgery. 5. Neurosyphilis, on penicillin G. PLAN: At this time, continue with penicillin G as per ID recommendations. PICC line is in place. Now working on placement. She does not need PPN. She is tolerating her diet well. Lovenox for DVT prophylaxis. Pending inpatient rehab versus care home facility. MD HINA Stephens/RENALDO /[id number]
--- NOTE | 2019-12-21 17:08 | NUR ---
Nutrition Intervention Note RD Recommendation(s) for Physician: -Continue regular diet - Plan of Care: RD following, monitoring for tolerance and adequacy Nutrition reason for involvement: follow up RD Assessment 12/20: Follow up. Pt continues to be confused. Pt is no longer on parenteral nutrition. Spoke with sitter at bedside who reported pt is eating well and is consuming >50% of meals. No N/V/D/C or chewing/swallowing issues. Will continue to monitor. 12/16 - 44yo F, who was admitted to [facility] for AMS. No previous medical history in chart. Pt continues to be combative, confused and agitated. Per RN, pt is receiving TPN via PICC as ordered. Principal Problems/Diagnoses: 1.Acute metabolic encephalopathy, secondary to acute cerebrovascular accident. 2.Agitation, secondary to acute cerebrovascular accident. 3.Positive RPR. Concerns for underlying neurocysticercosis. PMH: Unable to obtain I/O: 4110/3000 GI: soft, non-tender, last recorded BM 12/20 Skin: intact Labs: (12/20) Na 141, K 3.7, BUN 8, Cr 0.59, Glu 122. Ca 8.8 Meds: prednisone, hydralazine, Lipitor Ht: 63in Wt: 300lb BMI: 53.1kg/m2 IBW: 115lb +/- 10% Malnutrition Evaluation (12/17/2019) The patient does not meet criteria for a specified degree of malnutrition at this time. Will re-evaluate at follow-up as appropriate. Energy intake: <75% of estimated energy requirements for >7 days Weight loss: No daily weight recorded in chart Fat loss: no loss identified Muscle loss: no loss identified Supporting Evidence: Fluid accumulation: unable to evaluate Functional Status: unable to evaluate Nutrition Prescription (Diet Order): Regular Estimated Nutritional Needs: Calories: 1300 1560kcal (25-30kcal/kg) Weight used: IBW Protein: 78 130g (1.5-2.5g/kg) Weight used: IBW Diet Adequacy: Meeting calorie needs, Meeting protein needs Tolerance: tolerating PO Diet Education Needs Assessment: Diet education not indicated. Nutrition Care Level: moderate Nutrition Diagnosis: Inadequate oral intake related to AMS and combative as evidenced by initiation of TPN. (RESOLVED) Goal: Patient will meet 75-100% of estimated needs by follow up Progress: Goal Met Interventions: General, healthful diet Monitoring/Evaluation: Total energy intake, Total protein intake, Weight change Signed: Aliyah Smart RD, LD
[2019-12-21 20:00] VITALS: BP_SYST 144; BP_SYST 179; BP_DIAS 109
[2019-12-21] MEDS: QUETIAPINE FUMARATE 25 MG TAB PO SCH ×2 (21:00→22:35)
[2019-12-21] MEDS: ATORVASTATIN 40 MG TAB PO SCH ×2 (21:04→22:35)
[2019-12-22] VITALS: BP 167/93
[2019-12-22 04:00] VITALS: BP 161/101
[2019-12-22] MEDS: SODIUM CHLORIDE 0.9% IV SCH ×5 (04:11→21:06)
[2019-12-22] MEDS: PENICILLIN POTASSIUM IV SCH ×5 (04:11→21:06)
--- NOTE | 2019-12-22 07:52 | NUR ---
ABLE TO CONFERENCE COUSIN DARINEL AND HALF SISTER AMANDA, THEY HAVE MUTUALLY DECIDED TO GIVE PERMISSION TO SUBMIT FOR [facility]. FAXED CLINICALS, WILL UPDATE WHEN GET MORE INFORMATION.
[2019-12-22 09:52] VITALS: BP 161/101
--- NOTE | 2019-12-22 11:10 | NUR ---
CM SPOKE WITH SHAYLA GARCÍA DC, PH: [phone] SHE STATES [facility] IS IN NETWORK WITH PT'S INSURANCE PLEASE CONTACT HER FOR ANY FURTHER QUESTIONS/CONCERNS REGARDING DISCHARGE PLANNING FOR THIS PT
[2019-12-22] MEDS: VALPROATE SOD INJ 500 MG in SODIUM CHLORIDE 0.9% 100 ML 100 ML IV SCH ×2 (12:04→21:00)
[2019-12-22] MEDS: PREDNISONE 10 MG TAB PO SCH ×2 (12:16→17:00)
--- NOTE | 2019-12-22 12:40 | NUR ---
ok to transfer pt to med surg [address] Hare
--- NOTE | 2019-12-22 12:45 | NUR ---
RECEIVED REPORT FROM HANNAH BUTLER. PATIENT ARRIVED TO THE UNIT @ 1255 VIA BED. PATIENT IN STABLE CONDITION, NO S/S OF DISTRESS NOTED. RESPIRATIONS EVEN AND NONLABORED. IV FLUIDS INFUSING, SITE ASYMPTOMATIC AND PATENT, TRANSPARENT DRESSING C/D/I. SITTER AT BEDSIDE. BED IN LOWEST POSITION AND LOCKED, SIDE RAILS X 2, NONSKID SOCKS APPLIED. CALL LIGHT WITHIN REACH.
--- NOTE | 2019-12-22 17:21 | NUR ---
INFECTIOUS DISEASE PROGRESS NOTE DR. JACKELIN PADILLA CC: AMS HISTORY OF PRESENT ILLNESS: This patient who is currently noncommunicative. She is a 44-year-old white female apparently comes into the hospital with altered mental status. She works at local [employer]. She is having migraine. She comes from [facility] when she was altered. She was using handicapped wheelchair. The patient was very combative, confused, agitated. She was admitted. We do not know much about her. She had MRI of the brain, showed acute nonhemorrhagic infarct along the left thalamocapsular junction. ROS: unable to obtain, altered LABORATORY DATA: reviewed MEDICATIONS: per chart RADIOLOGY: per chart PHYSICAL EXAMINATION: VS: per chart GENERAL: She is noncommunicative, AMS HEENT: normocephalic, atraumatic NECK: Supple. no JVD CHEST: Diminished, aerating well COR: S1, S2. without s3, s4 ABDOMEN: Soft. non-tender EXT: lymphedema, obese, no joint swelling Psych: altered IMPRESSION: Altered mental status Neurosyphilis - likely, LP pending +RPR Titer 1:64 w/ positive FTA PLAN PCN G dosed per pharmacist x14 days continues with AMS this visit but improved working on placement recommend inpatient rehab if possible I want to see this patient in clinic if possible in [address] MSN, [employer], AGACNP-BC Jackelin Padilla M.D.
[2019-12-22] MEDS: ENOXAPARIN SOD INJ 40 MG/0.4 ML SYR SC SCH (17:35)
--- NOTE | 2019-12-22 19:10 | NUR ---
SBAR REPORT RECEIVED AT BEDSIDE, PATIENT SLEEPING,NO DISTRESS NOTED, RESPIRATIONS EVEN AND UNLABORED, HALDOL REPORTED GIVEN EARLIER FOR AGITATION, SITTER 1:1 FOR AMS, CALL LIGHT WITHIN REACH, WILL CONTINUE CARE
--- NOTE | 2019-12-22 19:38 | NUR ---
COMPLETED BEDSIDE REPORT AND ROUNDING WITH ONCOMING NIGHT NURSE. PATIENT RESTING QUIETLY IN BED. PATIENT IN STABLE CONDITION, NO S/S OF DISTRESS NOTED. RESPIRATIONS EVEN AND NONLABORED. IV FLUIDS INFUSING, SITE ASYMPTOMATIC AND PATENT, TRANSPARENT DRESSING C/D/I. SITTER AT BEDSIDE. BED IN LOWEST POSITION AND LOCKED, SIDE RAILS X 2, NONSKID SOCKS APPLIED. CALL LIGHT WITHIN REACH.
[2019-12-22 20:00] VITALS: BP_SYST 161; BP_SYST 164; BP_DIAS 101
[2019-12-22 20:33] VITALS: BP 164/101
--- NOTE | 2019-12-22 22:00 | NUR ---
PT BLOOD PRESSURE REPORT TO BE 164/101 , PRN HYDRALAZINE ON eMAR
[2019-12-22] MEDS: QUETIAPINE FUMARATE 25 MG TAB PO SCH (22:53)
[2019-12-22] MEDS: ATORVASTATIN 40 MG TAB PO SCH (22:53)
[2019-12-22] MEDS ORDERED: HYDRALAZINE HCL 20 MG/ML VIAL ONE (23:01)
[2019-12-23] VITALS (10 sets, daily range): BP systolic 135–181; BP diastolic 91–119
--- NOTE | 2019-12-23 02:47 | Progress Note ---
DATE: 12/22/2019 Medicine progress note SUBJECTIVE: The patient is much more alert, awake, and oriented x2 on examination. She has improved tremendously. PHYSICAL EXAMINATION: VITAL SIGNS: Temperature is 98.3, pulse is 73, respiratory rate is 18, blood pressure is 164/101, pulse ox 100% on room air. GENERAL: Not in acute distress. Alert and oriented x2. Cooperative on exam. PULMONARY: Clear to auscultation bilaterally. No wheezing, rales, or rhonchi. No crackles appreciated. CARDIOVASCULAR: Positive S1 and S2. No murmurs, rubs, or gallops appreciated. ABDOMEN: Soft, nondistended, nontender to palpation. Bowel sounds present. MUSCULOSKELETAL: Strength is 5/5 throughout. LABORATORY DATA: Labs show white count 6.1, hemoglobin 11.9, hematocrit is 35.4, and platelets of 128. Chemistry reviewed and stable. CSF shows VDRL was positive for neurosyphilis. She did have a CSF with no IgG antibody positive. MICROBIOLOGY: CSF, no growth. Blood cultures, no growth. Urine cultures, no growth. IMAGING STUDIES: Nothing new. IMPRESSION: 1. Metabolic encephalopathy secondary to acute cerebrovascular accident as well as neurosyphilis-improving. 2. History of migraine headaches. 3. Agitation-improving. 4. Subarachnoid cyst with no intervention needed by Neurosurgery. 5. Neurosyphilis, on penicillin G IV. PLAN: At this time, continue with IV penicillin G as per ID recommendations. No further neurosurgical workup. No further Neurology workup either as well. She is tolerating regular diet. Continue with Lovenox for DVT prophylaxis. Pending inpatient rehab. MD HINA Stephens/MODL /[id number]
[2019-12-23] MEDS: SODIUM CHLORIDE 0.9% IV SCH ×8 (04:22→23:04)
[2019-12-23] MEDS: PENICILLIN POTASSIUM IV SCH ×8 (04:22→23:04)
[2019-12-23] MEDS: HYDRALAZINE HCL 20 MG/ML VIAL IV PRN (04:23)
[2019-12-23 06:05] LABS: BASOPHILS # (AUTO) 0.1 (0.0-0.1); BASOPHILS % 1.4 % (0.0-1.0); EOSINOPHILS # (AUTO) 0.1 (0.0-0.4); HEMATOCRIT 34.9 % (34.2-44.1); HEMOGLOBIN 11.9 g/dL (12.0-16.0); LYMPHOCYTES # (AUTO) 0.9 (1.0-3.2); MEAN CORPUSCULAR HEMOGLOBIN 30.9 pg (28-32); MEAN CORPUSCULAR HGB CONC 34.1 g/dL (31-35); MEAN CORPUSCULAR VOLUME 90.6 fL (81-99); MONOCYTES # (AUTO) 0.4 (0.2-0.8); MONOCYTES % 11.6 % (4.4-11.3); NEUTROPHILS # (AUTO) 1.6 (2.1-6.9); NEUTROPHILS % 45.7 % (38.7-80.0); PLATELET COUNT 109 x10e3/uL (140-360); RED BLOOD COUNT 3.85 x10e6/uL (3.6-5.1); RED CELL DISTRIBUTION WIDTH 13.7 % (11.7-14.4)
--- NOTE | 2019-12-23 07:00 | NUR ---
RECEIVED BEDSIDE REPORT FROM OFF GOING NIGHT NURSE. PATIENT RESTING QUIETLY IN BED. PATIENT IN STABLE CONDITION, NO S/S OF DISTRESS NOTED. RESPIRATIONS EVEN AND NONLABORED. IV SITE ASYMPTOMATIC AND PATENT, TRANSPARENT DRESSING C/D/I. SITTER AT BEDSIDE. BED IN LOWEST POSITION AND LOCKED, SIDE RAILS X 2, NONSKID SOCKS APPLIED. CALL LIGHT WITHIN REACH.
--- NOTE | 2019-12-23 07:47 | NUR ---
asleep but arousable, able to have coherent conversation is not aware of situation very off manerisms and behaviors vs 98 90 161/91 awake, oriented x 1 eomi left eye ptosis face symmetric speech clear no nuchal rigidity reflexes 1/4 motor 5/5 a/p infectious encpehalopathy - on antibiotics possibly neurosyphillis-being treated w/ antibiotics LP + inflamatory cells on aed - goal depakote level 50-80 - recheck levels arachnoid cyst is incidental outpt monitoring going forward neuro follow up 3 weeks after discharge patient will require cognitive rehab
[2019-12-23] MEDS: VALPROATE SOD INJ 500 MG in SODIUM CHLORIDE 0.9% 100 ML 100 ML IV SCH ×2 (08:36→20:07)
[2019-12-23] MEDS: LOSARTAN POTASSIUM 100 MG TAB PO SCH (09:00)
[2019-12-23] MEDS: PREDNISONE 10 MG TAB PO SCH ×2 (09:43→16:13)
--- NOTE | 2019-12-23 11:50 | NUR ---
CALL TO [facility] FOR F/U ON AUTH. REQUESTED PT UPDATES. NONE IN THE COMPUTER AT THIS TIME. STATES AUTH WILL PROBABLY BE DETERMINED BY THURSDAY, BECAUSE OF THE PT NOT PARTICIPATING IN PT AND HER CONFUSION. WILL CONT TO FOLLOW.
[2019-12-23] MEDS ORDERED: FILGRASTIM 300 MCG/ML VIAL SC ONE (12:30)
[2019-12-23] MEDS ORDERED: ALTEPLASE RECOMBINANT 2 MG/2 ML VIAL IV ONE (13:15)
--- NOTE | 2019-12-23 15:34 | NUR ---
INFECTIOUS DISEASE PROGRESS NOTE DR. JACKELIN PADILLA CC: AMS HISTORY OF PRESENT ILLNESS: This patient who is currently noncommunicative. She is a 44-year-old white female apparently comes into the hospital with altered mental status. She works at local [employer]. She is having migraine. [facility] She was using handicapped wheelchair. The patient was very combative, confused, agitated. She was admitted. We do not know much about her. She had MRI of the brain, showed acute nonhemorrhagic infarct along the left thalamocapsular junction. ROS: unable to obtain, altered LABORATORY DATA: reviewed MEDICATIONS: per chart RADIOLOGY: per chart PHYSICAL EXAMINATION: VS: per chart GENERAL: She is noncommunicative, AMS HEENT: normocephalic, atraumatic NECK: Supple. no JVD CHEST: Diminished, aerating well COR: S1, S2. without s3, s4 ABDOMEN: Soft. non-tender EXT: lymphedema, obese, no joint swelling Psych: altered IMPRESSION: Altered mental status Neurosyphilis +RPR Titer 1:64 w/ positive FTA PLAN PCN G dosed per pharmacist x14 days alert, oriented, explained situation to patient Will need to see me in 2 weeks in clinic I want to see this patient in clinic if possible in [address] MSN, [employer], AGACNP-BC Jackelin Padilla M.D.
[2019-12-23] MEDS: ENOXAPARIN SOD INJ 40 MG/0.4 ML SYR SC SCH (16:13)
--- NOTE | 2019-12-23 19:09 | NUR ---
COMPLETED BEDSIDE REPORT AND ROUNDING WITH ONCOMING NIGHT NURSE. PATIENT IN STABLE CONDITION, NO S/S OF DISTRESS NOTED. RESPIRATIONS EVEN AND NONLABORED. IV FLUIDS INFUSING, SITE ASYMPTOMATIC AND PATENT, TRANSPARENT DRESSING C/D/I. SITTER AT BEDSIDE. BED IN LOWEST POSITION AND LOCKED, SIDE RAILS X 2, NONSKID SOCKS APPLIED. CALL LIGHT WITHIN REACH.
--- NOTE | 2019-12-23 19:20 | NUR ---
SBAR REPORT RECEIVED AT BEDSIDE FROM OFFGOING SHIFT RN, PATIENT AWAKE ALERT, AOX2-3 AT TIMES, REMAINS SLIGHTLY CONFUSED AT TIMES, SITTER 1;1 AT BEDSIDE GIVING CARE, BED IN LOWEST POSITION, PICC LINE DRESSING INTACT, x2 LUMEN, BOTH LUMENS FLUSHES WELL, SITE INTACT NO SWELLING NO DRAINAGE NOTED, WILL CONTINUE TO MONITOR
[2019-12-23] MEDS: ATORVASTATIN 40 MG TAB PO SCH (20:07)
[2019-12-23] MEDS: QUETIAPINE FUMARATE 25 MG TAB PO SCH (20:07)
--- NOTE | 2019-12-23 22:00 | NUR ---
WHILE GIVENING CARE, PATIENT WAS SEEN ATTEMPTING TO PULL OUT IV, STATING "I SEEN A HAIR ON IT, I WAS JUST TRYING TO GET THE HAIR", PATIENT ABLE TO WALK WITH WALKER AND STANBY ASSISTANCE TO BATHROOM, SHOWER GIVEN BY MYSELF AND SITTER, LINENS CHANGED, PLACED SAFELY BACK IN BED, GIVEN HALDOL FOR AGITATION
[2019-12-24] VITALS (12 sets, daily range): BP systolic 141–181; BP diastolic 83–122
--- NOTE | 2019-12-24 02:00 | NUR ---
patient attempted to get up out of bed unassisted, sitter at bedside and myself attempted to keep her say and return her to bed, but she became verbally combative stating "I going to fuck you up, get your hands off me, I can go whereever I want, I'm about to fuck both yall's up", reassurance, and reoriented patient to time, place and situation, and she was helped back into bed, resting comfortably sleeping
[2019-12-24] MEDS: PENICILLIN POTASSIUM IV SCH ×5 (04:26→22:16)
[2019-12-24] MEDS: SODIUM CHLORIDE 0.9% IV SCH ×5 (04:26→22:16)
[2019-12-24 05:13] LABS: BASOPHILS # (AUTO) 0.1 (0.0-0.1); BASOPHILS % 0.4 % (0.0-1.0); HEMATOCRIT 33.4 % (34.2-44.1); HEMOGLOBIN 11.5 g/dL (12.0-16.0); LYMPHOCYTES # (AUTO) 1.8 (1.0-3.2); LYMPHOCYTES % 8.8 % (18.0-39.1); MEAN CORPUSCULAR HEMOGLOBIN 30.4 pg (28-32); MEAN CORPUSCULAR HGB CONC 34.4 g/dL (31-35); MEAN CORPUSCULAR VOLUME 88.4 fL (81-99); MONOCYTES # (AUTO) 0.7 (0.2-0.8); MONOCYTES % 3.5 % (4.4-11.3); NEUTROPHILS # (AUTO) 17.7 (2.1-6.9); PLATELET COUNT 113 x10e3/uL (140-360); RED BLOOD COUNT 3.78 x10e6/uL (3.6-5.1); RED CELL DISTRIBUTION WIDTH 13.6 % (11.7-14.4)
--- NOTE | 2019-12-24 07:36 | NUR ---
COMPLETED BEDSIDE SHIFT REPORT AND ROUNDING WITH ONCOMING NIGHT NURSE. PATIENT IN STABLE CONDITION, SITTER 1:1 AT BEDSIDE. PICC PHIL, IV SITE ASYMPTOMATIC AND PATENT, CHG TRANSPARENT DRESSING C/D/I. BED IN LOWEST POSITION AND LOCKED, SIDE RAILS X 2, NONSKID SOCKS APPLIED. CALL LIGHT WITHIN REACH.
[2019-12-24 07:40] LABS: BAND NEUTROPHILS % (MANUAL) 5 %; HYPOCHROMASIA SLIGHT; LYMPHOCYTES % (MANUAL) 6 % (19-48); MONOCYTES % (MANUAL) 2 % (3.4-9.0); NEUTROPHILS % (MANUAL) 87 % (40-74); RBC MORPHOLOGY COMMENT ABNORMAL; TOXIC GRANULATION SLIGHT
[2019-12-24 07:41] LABS: PLATELET ESTIMATE SLIGHTLY DECREASED; PLATELET MORPHOLOGY COMMENT NORMAL
[2019-12-24] MEDS: VALPROATE SOD INJ 500 MG in SODIUM CHLORIDE 0.9% 100 ML 100 ML IV SCH ×2 (08:26→22:16)
--- NOTE | 2019-12-24 09:02 | Progress Note ---
DATE: 12/23/2019 Medicine Progress Note SUBJECTIVE: The patient is doing much better today. She is alert, awake, and oriented x2. Occasionally, she does make sense with words, but she is overall improved tremendously. PHYSICAL EXAMINATION: VITAL SIGNS: She is afebrile, normotensive, respiratory rate is good. GENERAL: No acute distress. Alert and oriented x2. Much improved. PULMONARY: Clear to auscultation bilaterally. No wheezing, rales, or rhonchi. No crackles appreciated. CARDIOVASCULAR: Positive S1, S2. No murmurs, rubs, or gallops. ABDOMEN: Soft, nondistended, nontender to palpation. Bowel sounds present. MUSCULOSKELETAL: Strength 5/5 throughout. LABORATORY DATA: CBC; white count 3.5, hemoglobin 11.8, hematocrit 34.9, and platelets of 109. Chemistries; reviewed, stable. IMPRESSION: 1. Metabolic encephalopathy secondary to acute cerebrovascular accident as well as underlying neurosyphilis. 2. History of migraine headaches. 3. Agitation, improved. 4. Subarachnoid cyst with no intervention needed by Neurosurgery. 5. Neurosyphilis, on penicillin G IV. PLAN: At this time, continue with penicillin G IV per ID recommendations. Neurology is also following. At this time, she is improving. She is still occasionally very confused. Once she improves, she will be going to inpatient rehab. Continue with regular diet. Lovenox for DVT prophylaxis. MD HINA Stephens/EVENSL /[id number]
[2019-12-24] MEDS: PREDNISONE 10 MG TAB PO SCH ×2 (09:53→16:04)
[2019-12-24] MEDS: LOSARTAN POTASSIUM 100 MG TAB PO SCH (09:53)
--- NOTE | 2019-12-24 11:04 | NUR ---
odd and inappropriate behaviors 97.8 153/95 98 awake, oriented x 1 eomi left eye ptosis face symmetric speech clear no nuchal rigidity reflexes 1/4 motor 5/5 a/p infectious encpehalopathy - on antibiotics possibly neurosyphillis-being treated w/ antibiotics LP + inflamatory cells on aed - goal depakote level 50-80 - recheck levels arachnoid cyst is incidental outpt monitoring going forward neuro follow up 3 weeks after discharge patient will require cognitive rehab
[2019-12-24] MEDS: ENOXAPARIN SOD INJ 40 MG/0.4 ML SYR SC SCH (16:13)
--- NOTE | 2019-12-24 17:24 | NUR ---
REQUESTING CLINICIAN: Dr Hare CONSULTING PHYSICIAN: Neeraj Dutta, Hematology-Oncology Service. REASON FOR CONSULTATION: Evaluation and management of patient with severe leukopenia and anemia. CC: Events noted REVIEW OF SYSTEMS: Limited. PHYSICAL EXAMINATION: VITAL SIGNS: Reviewed as per electronic medical record. Afebrile. General: Awake, alert, NAD, obese HEENT: NC, AT Neck: Supple Respiratory: Non-labored respirations CV: RRR Extremities: Moves all, + edema Neuro: Awake, alert ASSESSMENT AND PLAN: Ms. Torres is a 44-year-old young female with no significant past medical history other than migraine, who was at work and became confused, agitated and combative, subsequently brought into the emergency department. Initial workup including CT scan of the brain showed chronic left internal capsule lacunar infarct and left frontal arachnoid cyst without any acute pathology. Brain MRI was also performed revealing acute nonhemorrhagic infarct along the left thalamocapsular junction and adjacent tail of the left hippocampus in the left UNIVERSITY ARCHIVIST territory. The patient was seen and evaluated by Neurology, underwent CTA neck. This morning, noted to have significant drop in white blood cell count. Subsequently, Hematology-Oncology has been consulted to assist with the management. 1. AMS: Uncertain etiology, possibly neurosyphilis as RPR positive and CVA. Brain imaging as mentioned above. Neurology and psychiatry on board, s/p lumbar puncture. ID on board, patient on Penicillin G. Improving. Monitor. 2. Leukopenia: Uncertain etiology, however either bone marrow process or autoimmune process cannot be ruled out completely. Peripheral smear review revealed no abnormal cells or increase blasts or schistocytes. CT abd/pelvis revealed splenomegaly. S/P 2 total doses of Neupogen, with improvement in WBC count though with recurrent drops. ANC improved with neupogen. CBC in am. Plan for bone marrow biopsy outpatient. Monitor. 3. Anemia: Mild. Anemia panel appears mixed picture SRAVANI + AOCD. Patient may benefit from IV iron infusions. Will monitor or now. Hemoglobin stable. 4. Thrombocytopenia: Uncertain etiology. No evidence of cirrhosis on CT scan. No associated coagulopathy or renal dysfunction. Noted positive Hep B surface antigen. Platelet count mild, stable. Monitor. 5. Medical management: Per Primary. 6. DVT Proph: Continue Lovenox 40 mg subcu daily. 7. Dispo: Per primary team, possible rehab vs SNF. CM on board. Thank you for the consult. I will continue to be available. Please call with questions.
--- NOTE | 2019-12-24 19:50 | Progress Note ---
DATE: SUBJECTIVE: Ms. Torres is doing much better. REVIEW OF SYSTEMS: HEENT: Negative. PULMONARY: Negative. CARDIAC: Negative. PHYSICAL EXAMINATION: GENERAL: She is currently alert, oriented. VITAL SIGNS: Stable. Currently afebrile. HEENT: She is not icteric. NECK: Supple. CHEST: Clear. HEART: S1, S2. ABDOMEN: Soft. Bowel sounds present. EXTREMITIES: No edema. SKIN: No rash. IMPRESSION: Neurosyphilis improving, to finish course of IV antibiotic penicillin 2 weeks at least. We will check for GC and chlamydia. Her HIV is negative. Check for hepatitis panel. Continue supportive care. MD KASI Escobar/MODL /[id number]
[2019-12-24] MEDS: QUETIAPINE FUMARATE 25 MG TAB PO SCH (22:16)
[2019-12-24] MEDS: ATORVASTATIN 40 MG TAB PO SCH (22:16)
[2019-12-25] VITALS (7 sets, daily range): BP systolic 144–183; BP diastolic 95–122
--- NOTE | 2019-12-25 | NUR ---
Patient rounded and stable.
[2019-12-25] MEDS: PENICILLIN POTASSIUM IV SCH ×6 (00:53→19:40)
[2019-12-25] MEDS: SODIUM CHLORIDE 0.9% IV SCH ×6 (00:53→19:40)
--- NOTE | 2019-12-25 04:00 | NUR ---
Patient rounded and stable.
[2019-12-25 07:10] LABS: BASOPHILS # (AUTO) 0.1 (0.0-0.1); BASOPHILS % 0.7 % (0.0-1.0); EOSINOPHILS # (AUTO) 0.1 (0.0-0.4); EOSINOPHILS % 0.7 % (0.0-6.0); HEMATOCRIT 32.7 % (34.2-44.1); HEMOGLOBIN 10.9 g/dL (12.0-16.0); LYMPHOCYTES # (AUTO) 1.7 (1.0-3.2); LYMPHOCYTES % 14.1 % (18.0-39.1); MEAN CORPUSCULAR HEMOGLOBIN 30.5 pg (28-32); MEAN CORPUSCULAR HGB CONC 33.3 g/dL (31-35); MEAN CORPUSCULAR VOLUME 91.6 fL (81-99); MONOCYTES # (AUTO) 0.4 (0.2-0.8); MONOCYTES % 3.6 % (4.4-11.3); NEUTROPHILS # (AUTO) 9.6 (2.1-6.9); NEUTROPHILS % 78.5 % (38.7-80.0); PLATELET COUNT 104 x10e3/uL (140-360); RED BLOOD COUNT 3.57 x10e6/uL (3.6-5.1); RED CELL DISTRIBUTION WIDTH 13.9 % (11.7-14.4)
[2019-12-25 07:25] LABS: ALANINE AMINOTRANSFERASE 14 IU/L (0-55); ALBUMIN 2.7 g/dL (3.5-5.0); ALBUMIN/GLOBULIN RATIO 0.6 (0.8-2.0); ALKALINE PHOSPHATASE 57 IU/L (40-150); ANION GAP 10.7 mmol/L (8-16); BLOOD UREA NITROGEN 12 mg/dL (7-26); BUN/CREATININE RATIO 20 (6-25); CALCIUM 8.1 mg/dL (8.4-10.2); CARBON DIOXIDE 24 mmol/L (22-29); CHLORIDE 107 mmol/L (98-107); CREATININE, SERUM 0.61 mg/dL (0.57-1.11); EST GLOMERULAR FILTRATION RATE > 60 ML/MIN (60-); GLUCOSE 148 mg/dL (74-118); POTASSIUM 3.7 mmol/L (3.5-5.1); SODIUM 138 mmol/L (136-145)
[2019-12-25] MEDS: LOSARTAN POTASSIUM 100 MG TAB PO SCH (07:59)
[2019-12-25] MEDS: PREDNISONE 10 MG TAB PO SCH ×2 (07:59→17:12)
[2019-12-25] MEDS: VALPROATE SOD INJ 500 MG in SODIUM CHLORIDE 0.9% 100 ML 100 ML IV SCH ×2 (08:13→20:34)
[2019-12-25] MEDS: CARVEDILOL 12.5 MG TAB PO SCH ×2 (09:51→17:12)
--- NOTE | 2019-12-25 10:02 | Progress Note ---
DATE: 12/24/2019 Medicine Progress Note Late entry note. SUBJECTIVE: The patient is working with physical therapy. She is improving tremendously. She is alert and awake. She is much more oriented now. She has improved tremendously. PHYSICAL EXAMINATION: VITAL SIGNS: Temperature 98, pulse 96, respiratory rate 20, blood pressure was elevated 170/108, pulse ox 98% on room air. GENERAL: No acute distress. Alert and oriented x2-3 occasionally. PULMONARY: Clear to auscultation bilaterally. No wheezing, rales, or rhonchi. No crackles appreciated. CARDIOVASCULAR: Positive S1 and S2. No murmurs, rubs, or gallops. ABDOMEN: Soft, nondistended, nontender to palpation. Bowel sounds present. MUSCULOSKELETAL: Strength 5/5 throughout. LABORATORY DATA: Labs show white count 20, hemoglobin 11.5, hematocrit 38.4, platelets of 113. Chemistry reviewed, stable. IMAGING: None. IMPRESSION: 1. Metabolic encephalopathy secondary to acute cerebrovascular accident as well as underlying neurosyphilis. 2. History of migraine headaches. 3. Agitation-resolved. 4. Subarachnoid cyst-no intervention needed by Neurosurgery. 5. Neurosyphilis, on penicillin G IV. 6. Hypertension. PLAN: At this time, her white count was elevated. She was given some Neupogen from Hematology. She is otherwise doing well. She is afebrile. We will monitor white count closely. Continue with IV penicillin G per ID. Neurology is following as well. She is on steroids. I did add Coreg for her blood pressure being elevated. Pending inpatient rehab. Potentially discharge later next week. MD HINA Stephens/RENALDO /[id number]
--- NOTE | 2019-12-25 11:25 | NUR ---
awake and responsive 97.8 153/95 98 awake, oriented x 1 eomi left eye ptosis face symmetric speech clear no nuchal rigidity reflexes 1/4 motor 5/5 a/p infectious encpehalopathy - on antibiotics possibly neurosyphillis-being treated w/ antibiotics LP + inflammatory cells on aed - goal depakote level 50-80 - recheck levels arachnoid cyst is incidental outpt monitoring going forward neuro follow up 3 weeks after discharge patient will require cognitive rehab
--- NOTE | 2019-12-25 15:12 | NUR ---
Updated clinicals faxed to [facility] [phone] as requested
--- NOTE | 2019-12-25 16:12 | Progress Note ---
DATE: SUBJECTIVE: The patient is seen and evaluated. Discussed with Dr. Escoto. Discussed with the patient. Available notes reviewed. REVIEW OF SYSTEMS: Feels better, eats well. No nausea, vomiting, fever, chills, chest pain, headache, rash, dysuria, or polyuria. PHYSICAL EXAMINATION: VITAL SIGNS: Temperature is 97.5, pulse 89, respiration 20, and blood pressure 154/109. GENERAL: Seems to be confused a little bit. No acute distress. CV: S1 and S2. CHEST: Equal expansion. Clear to auscultation. No acute distress. ABDOMEN: Soft, obese, and nontender. HEENT: Moist. No pallor. No JVD. MEDICATIONS: From Infectious Disease point of view, the patient is on penicillin G. LABORATORY STUDIES: RPR titers 1:64 with positive/reactive RPR. Also, T pallidum antibody is reactive. Hepatitis B surface antigen is positive. HIV not reactive. HSV not reactive. 12/25/2019; white count 12.16, hemoglobin 10.9, and platelet 104. Sodium 138, potassium 3.7, and creatinine 0.61. MICROBIOLOGY: Blood culture negative. Urine cultures negative. CSF cultures negative after 6 days. IMAGING: No new radiology studies available. ASSESSMENT AND PLAN: 1. Neurosyphilis. 2. GC not available yet. 3. Leukocytosis improved. 4. Current with antibiotic as planned. Further management of this patient is based on daily findings on laboratory and physical examination. Please refer to chart for more information. Dictated by Chay Cabrera PA-C (Al) Timi Escoto MD /MODL /[id number]
--- NOTE | 2019-12-25 16:41 | NUR ---
REQUESTING CLINICIAN: Dr Hare CONSULTING PHYSICIAN: Neeraj Dutta, Hematology-Oncology Service. REASON FOR CONSULTATION: Evaluation and management of patient with severe leukopenia and anemia. CC: Events noted PHYSICAL EXAMINATION: VITAL SIGNS: Reviewed as per electronic medical record. Afebrile. General: Awake, alert, NAD, obese HEENT: NC, AT Neck: Supple Respiratory: Non-labored respirations CV: RRR Extremities: Moves all, + edema Neuro: Awake, alert ASSESSMENT AND PLAN: Ms. Torres is a 44-year-old young female with no significant past medical history other than migraine, who was at work and became confused, agitated and combative, subsequently brought into the emergency department. Initial workup including CT scan of the brain showed chronic left internal capsule lacunar infarct and left frontal arachnoid cyst without any acute pathology. Brain MRI was also performed revealing acute nonhemorrhagic infarct along the left thalamocapsular junction and adjacent tail of the left hippocampus in the left [employer]ST[employer] territory. The patient was seen and evaluated by Neurology, underwent CTA neck. This morning, noted to have significant drop in white blood cell count. Subsequently, Hematology-Oncology has been consulted to assist with the management. 1. AMS: Uncertain etiology, possibly neurosyphilis as RPR positive and CVA. Brain imaging as mentioned above. Neurology and psychiatry on board, s/p lumbar puncture. ID on board, patient on Penicillin G. Improving. Monitor. 2. Leukopenia: Uncertain etiology, however either bone marrow process or autoimmune process cannot be ruled out completely. Peripheral smear review revealed no abnormal cells or increase blasts or schistocytes. CT abd/pelvis revealed splenomegaly. S/P 2 total doses of Neupogen, with improvement in WBC count though with recurrent drops. ANC improved with neupogen and trending down.Plan for prn neupogen for ANC<1500. CBC in am. Plan for bone marrow biopsy outpatient. Monitor. 3. Anemia: Mild. Anemia panel appears mixed picture SRAVANI + AOCD. Patient may benefit from IV iron infusions. Will monitor or now. 4. Thrombocytopenia: Uncertain etiology. No evidence of cirrhosis on CT scan. No associated coagulopathy or renal dysfunction. Noted positive Hep B surface antigen. Platelet count mild, stable. Monitor. 5. Medical management: Per Primary. 6. DVT Proph: Continue Lovenox 40 mg subcu daily. 7. Dispo: Per primary team, possible rehab vs SNF. CM on board. Thank you for the consult. I will continue to be available. Please call with questions
[2019-12-25] MEDS: ENOXAPARIN SOD INJ 40 MG/0.4 ML SYR SC SCH (17:12)
--- NOTE | 2019-12-25 18:27 | NUR ---
Left answering service message to Dr. Escoto regarding microbiolgy order clarification. Awaiting for call back.
[2019-12-25] MEDS: ATORVASTATIN 40 MG TAB PO SCH (19:43)
[2019-12-25] MEDS: QUETIAPINE FUMARATE 25 MG TAB PO SCH (19:43)
--- NOTE | 2019-12-25 21:51 | NUR ---
HOURLY ROUNDING COMPLETED PER PROTOCOL, PT SEEN AWAKE ALERT, TOILETING OFFERED, TOILETING COMPLETED ABLE TO WALK WITH WALKER STANDBY ASSISTANCE, SAFETY MAINTAINED, PT OFFERED LINEN CHANGE REFUSED, PERSONAL BELONGINGS WITHIN REACH, CALL LIGHT WITHIN HER REACH
[2019-12-26] VITALS (11 sets, daily range): BP systolic 135–175; BP diastolic 87–123
[2019-12-26] MEDS: PENICILLIN POTASSIUM IV SCH ×6 (01:00→20:30)
[2019-12-26] MEDS: SODIUM CHLORIDE 0.9% IV SCH ×6 (01:00→20:30)
--- NOTE | 2019-12-26 07:53 | NUR ---
awake and responsive vitals stable awake, oriented x 1 eomi left eye ptosis face symmetric speech clear no nuchal rigidity reflexes 1/ motor 5/5 a/p infectious encpehalopathy - on antibiotics possibly neurosyphillis-being treated w/ antibiotics LP + inflammatory cells on aed - goal depakote level 50-80 - recheck levels arachnoid cyst is incidental outpt monitoring going forward neuro follow up 3 weeks after discharge patient will require cognitive rehab
--- NOTE | 2019-12-26 09:05 | Progress Note ---
DATE: 12/25/2019 SUBJECTIVE: The patient was doing well. She was alert, awake, sitting in a La-Z-Boy today with no issues. She was talking to me, making sense with words. In fact, this is one of the 1st day she has been much more alert and awake. She is ambulating with physical therapy. She has improved tremendously. PHYSICAL EXAMINATION: VITAL SIGNS: Temperature is 97.9, pulse 68, respiratory rate is 18, blood pressure was 158/100, pulse ox 96% on room air. GENERAL: No acute distress. Alert, oriented x3. Cooperative on exam. PULMONARY: Clear to auscultation bilaterally. No wheezing, rales, or rhonchi. No crackles appreciated. CARDIOVASCULAR: Positive S1, S2. No murmurs, rubs, or gallops appreciated. ABDOMEN: Soft, nontender, nondistended to palpation. Bowel sounds are present. MUSCULOSKELETAL: Strength 5/5 throughout. LABORATORY DATA: Show white count 12, hemoglobin 10, hematocrit 32, and platelets of 104. Chemistry reviewed, stable. IMPRESSION: 1. Metabolic encephalopathy secondary to acute cerebrovascular with underlying neurosyphilis as well. 2. History of migraine headaches. 3. Agitation. 4. Subarachnoid cyst with no intervention needed by neurosurgery. 5. Neurosyphilis, on penicillin G IV. 6. Hypertension. PLAN: At this time, the patient was given Neupogen and hence the reason why her white count is elevated. She is alert. She is awake. She is oriented on examination, she is doing tremendously well. Continue with IV penicillin G per ID. Our plan is to discharge her eventually to inpatient rehab facility. She has improved tremendously. As for her blood pressure, still slightly elevated. She is on Coreg as well as losartan. If her blood pressure is still elevated, I will go ahead and increase the Coreg. MD HINA Stephens/RENALDO /[id number]
[2019-12-26] MEDS: CARVEDILOL 12.5 MG TAB PO SCH ×2 (09:10→18:50)
[2019-12-26] MEDS: LOSARTAN POTASSIUM 100 MG TAB PO SCH (09:10)
[2019-12-26] MEDS: PREDNISONE 10 MG TAB PO SCH ×2 (09:10→18:50)
--- NOTE | 2019-12-26 10:25 | Progress Note ---
DATE: 12/21/2019 Psychiatric Progress Note SUBJECTIVE: The patient evaluated and events noted. The patient is in room. She is calm. She is doing better. She is not combative. She is not answering any questions at this time. However, nursing staff report the patient did not sleep well last night and slept only 1 hour. She is eating well. She is doing much better. ASSESSMENT: Unspecified psychosis/delirium, improved. PLAN: 1. Add Seroquel 25 mg p.o. at bedtime. 2. Monitor for agitation and side effects. Dictated by Saida Loo PA-C Katrina Parekh MD QTV/RENALDO /[id number]
[2019-12-26] MEDS: VALPROATE SOD INJ 500 MG in SODIUM CHLORIDE 0.9% 100 ML 100 ML IV SCH (10:35)
--- NOTE | 2019-12-26 10:40 | Progress Note ---
DATE: 12/23/2019 SUBJECTIVE: The patient is evaluated events noted. The patient is doing much better. She is able to answer question. She is able to eat. She denies any anxiety. Denies any hallucination. Denies any suicidal ideation. She is sleepy, eating well. She denies any side effects of medication. ASSESSMENT: Unspecified psychosis/delirium, resolved. PLAN: 1. Continue with Seroquel 50 mg p.o. at bedtime. 2. Continue p.r.n. medication. Dictated by Saida Loo PA-C MD SIENNA LaguerreV/MODL /[id number]
--- NOTE | 2019-12-26 11:05 | Progress Note ---
DATE: Psychiatric Progress Note SUBJECTIVE: The patient was evaluated and events noted. The patient is in her room. She is doing much better. She is answering question. She knows where she is, the current year, the current president, at times she does not answer questions in the right context, but overall much much improved. She is not sleeping again last night. She reports some anxiety, wants to go home. ASSESSMENT: Unspecified psychosis/delirium, improved. PLAN: 1. Increase Seroquel to 50 mg p.o. at bedtime. 2. Monitor for agitation. Dictated by Saida Loo PA-C MD SIENNA LaguerreV/RENALDO /[id number]
--- NOTE | 2019-12-26 11:53 | NUR ---
INFECTIOUS DISEASE PROGRESS NOTE DR. JACKELIN PADILLA SUBJECTIVE: The patient is seen and evaluated. Discussed with Dr. Padilla. Discussed with the patient. Available notes reviewed. REVIEW OF SYSTEMS: Feels better, eats well. No nausea, vomiting, fever, chills, chest pain, headache, rash, dysuria, or polyuria. PHYSICAL EXAMINATION: VITAL SIGNS: per chart GENERAL: Seems to be confused a little bit. No acute distress. CV: S1 and S2. no S3 S4 CHEST: Equal expansion. Clear to auscultation. No acute distress. ABDOMEN: Soft, obese, and nontender. HEENT: Moist. No pallor. No JVD. MEDICATIONS: From Infectious Disease point of view, the patient is on penicillin G. LABORATORY STUDIES: per chart MICROBIOLOGY: per chart IMAGING: No new radiology studies available. ASSESSMENT AND PLAN: 1. Neurosyphilis. 2. GC not available yet. 3. Leukocytosis improved. Continue with antibiotic as planned. Further management of this patient is based on daily findings on laboratory and physical examination. Please refer to chart for more information. [address] treatment [address] MSN, IMMIGRATION ASSOCIATE, AGACNP-BC Jackelin Padilla M.D.
--- NOTE | 2019-12-26 15:21 | NUR ---
ACUTE REHAB DISCHARGE INFORMATION PATIENT HAS BEEN ACCEPTED TO: [address] [place] [address] [facility]EPTING [facility] ATTENDANT: Ellie Farrar [employer] ACCEPTING MD: Dr. Quan ROOM: will be assigned on report NURSE CALL REPORT TO: [phone] THE FOLLOWING DOCUMENTS MUST ACCOMPANY PATIENT FOR TRANSFER: copy of chart, transfer MAR COPIED CHART: neonatal intensive care unit nurse MOT INFO RECEIVED FROM: [facility] ORDER/RECONCILED MED LIST: Dr. Hare is here and placed order in system [id number] DNR: n/a MOT completed and placed with pt's packet at nurses station. CARRIE Angelo informed of acceptance
--- NOTE | 2019-12-26 17:05 | NUR ---
Follow up Note RD Recommendation(s) for Physician: -Continue regular diet Plan of Care: RD following, monitoring for tolerance and adequacy Nutrition reason for involvement: follow up RD Assessment 12/26/19: Follow up. Pt is alert at this time. Pt reports a good appetite and that she is eating all of her meals. No N/V/D/C or chewing/swallowing issues. Pt was unsure of any recent weight changes. Pt has weights ranging from 221-300 lbs in chart for this admission. Recommend to reweigh pt. Will continue to monitor 12/20: Follow up. Pt continues to be confused. Pt is no longer on parenteral nutrition. Spoke with sitter at bedside who reported pt is eating well and is consuming >50% of meals. No N/V/D/C or chewing/swallowing issues. Will continue to monitor. 12/16 - 44yo F, who was admitted to [facility] for AMS. No previous medical history in chart. Pt continues to be combative, confused and agitated. Per RN, pt is receiving TPN via PICC as ordered. Principal Problems/Diagnoses: 1.Acute metabolic encephalopathy, secondary to acute cerebrovascular accident. 2.Agitation, secondary to acute cerebrovascular accident. 3.Positive RPR. Concerns for underlying neurocysticercosis. PMH: Unable to obtain GI: soft, non-tender, large, round abdomen, last recorded BM 12/23 Skin: intact Labs: (12/24) (12/20) Na 141, K 3.7, BUN 8, Cr 0.59, Glu 122. Ca 8.8 Meds: antibiotic, losartan, prednisone, Lipitor, hydralazine Ht: 63in Wt: 221.5 lbs (12/21) 300lb (12/10) BMI: 39.2 kg/m2 IBW: 115lb +/- 10% Malnutrition Evaluation (12/26/2019) The patient does not meet criteria for a specified degree of malnutrition at this time. Will re-evaluate at follow-up as appropriate. Energy intake: Adequate PO intake recorded Weight loss: unable to assess Fat loss: no loss identified Muscle loss: no loss identified Supporting Evidence: Fluid accumulation: unable to evaluate Functional Status: unable to evaluate Nutrition Prescription (Diet Order): Regular Estimated Nutritional Needs: Calories: 1300 1560kcal (25-30kcal/kg) Weight used: IBW Protein: 78 130g (1.5-2.5g/kg) Weight used: IBW Diet Adequacy: Meeting calorie needs, Meeting protein needs Tolerance: tolerating PO Diet Education Needs Assessment: Diet education not indicated. Nutrition Care Level: low (pt is eating well) Nutrition Diagnosis: Overweight/obesity related to predicted h/o excessive energy intake compared to needs as evidenced by BMI >30. Goal: Patient will meet 75-100% of estimated needs by follow up Progress: Goal Met Interventions: General, healthful diet Monitoring/Evaluation: Total energy intake, Total protein intake, Weight change Signed: Aliyah Smart RD, LD
--- NOTE | 2019-12-26 17:05 | NUR ---
CALLED REPORT TO CARRIE SUBRAMANIAN AT [facility] FOR TRANSFER OF CARE.
[2019-12-26] MEDS: ENOXAPARIN SOD INJ 40 MG/0.4 ML SYR SC SCH (18:50)
--- NOTE | 2019-12-26 19:15 | NUR ---
Bedside shift report with morning nurse. Pt alert and oriented to name, anxious about waiting to be discharged. Informed ambulance called and will be here shortly. Denies pain at this time. Call light within reach. Bed low and locked.
[2019-12-26] MEDS: ATORVASTATIN 40 MG TAB PO SCH (20:30)
--- NOTE | 2019-12-26 20:45 | NUR ---
D/C'd to [facility] via stretcher by ambulance. Pt alert and oriented. Denies pain. VSS. Paperwork given to ambulance. No acute distress.
== END 2019-12-26 20:47 | DRG 64 ==
LOC: ER 07:47 → ERHOLD 12:05 → MED/SURG 13:09 → MED/SURG2 12-22 12:37
PROVIDERS: ADMIT Internal Medicine; ATTEND Internal Medicine
PROC: 3E0336Z Introduction of Nutritional Substance into Peripheral Vein, Percutaneous Approach (ICD-10-PCS; 2019-12-15)
PROC: 3E0336Z Introduction of Nutritional Substance into Peripheral Vein, Percutaneous Approach (ICD-10-PCS; 2019-12-16)
PROC: 02HV33Z Insertion of Infusion Device into Superior Vena Cava, Percutaneous Approach (ICD-10-PCS; principal; 2019-12-19)
PROC: B548ZZA Ultrasonography of Superior Vena Cava, Guidance (ICD-10-PCS; 2019-12-19)
PROC: 009U3ZX Drainage of Spinal Canal, Percutaneous Approach, Diagnostic (ICD-10-PCS; 2019-12-19)
PROC: B01B1ZZ Fluoroscopy of Spinal Cord using Low Osmolar Contrast (ICD-10-PCS; 2019-12-19)
DX: I63.532 Cerebral infarction due to unspecified occlusion or stenosis of left posterior cerebral artery (principal); G93.41 Metabolic encephalopathy; A52.3 Neurosyphilis, unspecified; G93.49 Other encephalopathy; B19.10 Unspecified viral hepatitis B without hepatic coma; F29 Unspecified psychosis not due to a substance or known physiological condition; Z11.59 Encounter for screening for other viral diseases; G93.0 Cerebral cysts; D70.2 Other drug-induced agranulocytosis; I63.81 Other cerebral infarction due to occlusion or stenosis of small artery; D63.8 Anemia in other chronic diseases classified elsewhere; D50.9 Iron deficiency anemia, unspecified; R21 Rash and other nonspecific skin eruption
CPT/HCPCS: 36415; 36569; 62328; 70450; 70496; 70498; 70551; 71045; 74177; 74470; 80048; 80053; 80061; 80164; 80307; 80320; 80329; 81001; 82140; 82550; 82553; 82607; 82728; 82746; 82948; 83036; 83516; 83540; 83605; 83615; 83735; 83874; 83916; 84100; 84146; 84443; 84466; 84484; 84702; 85025; 85045; 85610; 85651; 85730; 86140; 86160; 86225; 86235; 86255; 86256; 86376; 86592; 86789; 86850; 86900; 87040; 87070; 87086; 87205; 87390; 87491; 87529; 87591; 89051; 93005; 93306; 96361; 97139; 99285; G0433; G0435; J0360; J0696; J1170; J1200; J1442; J1630; J1650; J2001; J2060; J2250; J2405; J2540; J2997; J3010; J3370; J3411; J3480; J3486; J7030; J7042; J7050; J7512; J7799; Q9967

== ENCOUNTER → 2020-04-01 | Emergency (ER) | payer BC, OTHER ==
[~2020-04-01] MED LIST: CEFTRIAXONE SOD 1 GM/NS 50 ML 50 ML IV ONE; IOPAMIDOL 370 MG/ML 200 ML INFUS..BTL INJ ONE; KETOROLAC TROMETHAMINE 30 MG/ML VIAL IV STA; KETOROLAC TROMETHAMINE 30 MG/ML VIAL ONE; ONDANSETRON HCL INJ 2MG/ML 2ML 2 MG/ML VIAL IV STA; PIPER-TAZ 3.375 GM 50 ML IV SCH; SODIUM CHLORIDE 0.9% 1000ML 1,000 ML IV STA; SODIUM CHLORIDE 0.9% 50ML 50 ML ONE
[2020-04-01 03:05] LABS: BASOPHILS % 0.2 % (0.0-1.0); EOSINOPHILS # (AUTO) 0.1 (0.0-0.4); EOSINOPHILS % 1.7 % (0.0-6.0); HEMATOCRIT 36.6 % (34.2-44.1); HEMOGLOBIN 12.2 g/dL (12.0-16.0); LYMPHOCYTES # (AUTO) 1.1 (1.0-3.2); LYMPHOCYTES % 25.5 % (18.0-39.1); MEAN CORPUSCULAR HEMOGLOBIN 28.7 pg (28-32); MEAN CORPUSCULAR HGB CONC 33.3 g/dL (31-35); MEAN CORPUSCULAR VOLUME 86.1 fL (81-99); MONOCYTES # (AUTO) 0.3 (0.2-0.8); MONOCYTES % 6.7 % (4.4-11.3); NEUTROPHILS # (AUTO) 2.7 (2.1-6.9); NEUTROPHILS % 65.7 % (38.7-80.0); PLATELET COUNT 163 x10e3/uL (140-360); RED BLOOD COUNT 4.25 x10e6/uL (3.6-5.1); RED CELL DISTRIBUTION WIDTH 12.9 % (11.7-14.4)
[2020-04-01 03:17] LABS: ALANINE AMINOTRANSFERASE 289 IU/L (0-55); ALBUMIN 3.5 g/dL (3.5-5.0); ALBUMIN/GLOBULIN RATIO 0.6 (0.8-2.0); ALKALINE PHOSPHATASE 261 IU/L (40-150); ANION GAP 14.7 mmol/L (8-16); BLOOD UREA NITROGEN 13 mg/dL (7-26); BUN/CREATININE RATIO 13 (6-25); CALCIUM 8.8 mg/dL (8.4-10.2); CARBON DIOXIDE 21 mmol/L (22-29); CHLORIDE 104 mmol/L (98-107); CREATINE KINASE 57 IU/L (29-168); EST GLOMERULAR FILTRATION RATE > 60 ML/MIN (60-); GLUCOSE 119 mg/dL (74-118); POTASSIUM 3.7 mmol/L (3.5-5.1); SODIUM 136 mmol/L (136-145)
[2020-04-01 03:45] LABS: CLARITY,URINE CLOUDY (CLEAR); LEUKOCYTE ESTERASE ,URINE LARGE (NEGATIVE); NITRITE,URINE NEGATIVE (NEGATIVE); PROTEIN,URINE DIPSTICK 1+ (NEGATIVE)
[2020-04-01 03:46] LABS: AMPHETAMINES SCREEN,URINE NEGATIVE (NEGATIVE); BENZODIAZEPINES SCREEN,URINE NEGATIVE (NEGATIVE); COLOR,URINE AMBER (YELLOW); KETONES,URINE NEGATIVE (NEGATIVE); PHENCYCLIDINE SCREEN,URINE NEGATIVE (NEGATIVE); URINE UROBILINOGEN 1 mg/dL (0.2 - 1)
[2020-04-01 03:47] LABS: BACTERIA,URINE MANY /HPF; EPITHELIAL CELLS,URINE MANY /LPF; PREGNANCY TEST, URINE NEGATIVE (NEGATIVE); WBC,URINE (MAN) >50 /HPF (0-5)
== END | disposition other institution (70) ==
LOC: ER 02:09
DX: K80.51 Calculus of bile duct without cholangitis or cholecystitis with obstruction (principal); R10.11 Right upper quadrant pain; R11.2 Nausea with vomiting, unspecified; K85.90 Acute pancreatitis without necrosis or infection, unspecified; N39.0 Urinary tract infection, site not specified; I10 Essential (primary) hypertension; G62.9 Polyneuropathy, unspecified; E78.00 Pure hypercholesterolemia, unspecified; Z86.73 Personal history of transient ischemic attack (TIA), and cerebral infarction without residual deficits; Z11.52 Encounter for screening for COVID-19
CPT/HCPCS: 36415; 74177; 76705; 80053; 80307; 81001; 81025; 82150; 82550; 82553; 83690; 84484; 85025; J0696; J1885; J2405; J2543; J7030; Q9967; U0002